=== PATIENT | male | born 1980 | race Caucasian/White ===

== ENCOUNTER 2016-08-31 20:55 | Emergency (ER) | payer OTHER ==
[2016-08-31] MEDS ORDERED: ASPIRIN 81 MG CHEW TABLET As Ordered ONE (21:43)
[2016-08-31] MEDS ORDERED: MORPHINE 2 MG/ML 1ML SYRINGE As Ordered ONE (21:44)
[2016-08-31] MEDS ORDERED: ALPRAZolam 0.25 MG TAB As Ordered ONE (22:09)
[2016-08-31 22:18] LABS: BASO % 0.6 % (0.0-1.0); EOS # 0.1 K/mm3 (0.0-0.50); EOS % 1.7 % (0.0-3.0); LARGE UNSTAINED CELL # 0.1 K/mm3 (0.0-0.4); LARGE UNSTAINED CELL % 1.6 % (0.0-4.0); LYMPH # 1.5 K/mm3 (1.5-4.5); LYMPH % 23.1 % (24.0-44.0); MEAN CORPUSCULAR HEMOGLOBIN 31.3 pg (27.0-33.0); MEAN CORPUSCULAR VOLUME 89.3 fl (80.0-96.0); MONO # 0.4 K/mm3 (0.0-0.8); MONO % 6.1 % (0.0-5.0); NEUTROPHILS % 66.8 % (36.0-66.0); PLATELET COUNT, AUTOMATED 252 k/mm3 (150-450); RED CELL DISTRIBUTION WIDTH 12.9 % (11.5-14.5)
[2016-08-31 22:35] LABS: ANION GAP 12 MEQ/L (8-16); BLOOD UREA NITROGEN 17 MG/DL (7-18); CALCIUM LEVEL 9.4 MG/DL (8.5-10.1); CARBON DIOXIDE LEVEL 27 MEQ/L (21-32); CHLORIDE LEVEL 103 MEQ/L (98-107); CREATININE FOR GFR 1.14 MG/DL (0.70-1.30); GLOMERULAR FILTRATION RATE > 60.0 (>60); GLUCOSE, FASTING 102 MG/DL (70-105); POTASSIUM SERUM 3.4 MEQ/L (3.5-5.1); SODIUM LEVEL 142 MEQ/L (136-145)
[2016-08-31] MEDS ORDERED: POTASSIUM CHLORIDE 10 MEQ SR TABLET As Ordered ONE (23:16)
--- NOTE | 2016-08-31 23:29 | EDDOCDS ---
Nurse's Notes [facility] Name: Edward Rahman Age: 35 yrs Sex: Male : 1980 Arrival Date: 08/31/2016 Time: 20:55 Bed 6 Private MD: [facility] Diagnosis: Other chest pain;Anxiety disorder, unspecified;Panic disorder [episodic paroxysmal anxiety] without agoraphobia Presentation: 08/31 21:04 Presenting complaint: Patient states: about 20 minutes ago began having left sided nn1 chest pain and left sided neck pain. States pain in left neck is worst at this time, feels like pressure in his neck. Reports chest pain is sharp, states he began having chills when pain began. Adult Sepsis Screening: The patient does not have new or worsening altered mentation. Patient has a respiratory rate of greater than or equal to 22 (1 point). Systolic blood pressure is greater than 100. Patient has a qSOFA score of 1- Negative Sepsis Screen. Suicide/Homicide risk assessment- the patient denies having any suicidal and/or homicidal ideations and does not present with any other emotional, behavioral or mental health complaints. Status: Patient is not a service station attendant or dependent. Transition of care: patient was not received from another setting of care. 21:04 Acuity: SILVIA Level 3 nn1 21:04 Method Of Arrival: Walkin/Carried/Asstd nn1 Triage Assessment: 21:08 General: Appears distressed, Behavior is anxious, crying. Pain: Location: left neck nn1 Pain currently is 5 out of 10 on a pain scale. Quality of pain is described as pressure, stabbing, Pain began 30 min ago. HIV screening NA for this visit Offered previously. The patient is triaged at the bedside. See Assessment in Nurses Notes section of ED record. Neurological: Level of Consciousness is awake, alert, obeys commands, Oriented to person, place, time. Cardiovascular: Chest pain is described as mild, Pain is 4 out of 10 on a pain scale. quality is stabbing, is located in left chest wall episodes are continuous. Respiratory: Onset: The symptoms/episode began/occurred suddenly, Airway is patent Respiratory effort is even, labored, Respiratory pattern is hyperventilation. Derm: Skin is moist. Historical: - Allergies: No known drug Allergies; - Home Meds: 1. none - PMHx: Cancer, Testicular- Left; Panic Attacks; - PSHx: Orchiectomy- Left; - Social history: Smoking status: Patient states former smoker of tobacco. No barriers to communication noted, The patient speaks fluent Slovak, Speaks appropriately for age. - Family history: Father has/had diabetes mellitus. - : The pt / caregiver states he / she is not on anticoagulants. Home medication list is obtained from the patient. - Exposure Risk Screening:: None identified. Screenin:10 Screening information is obtained from the patient. Fall risk: No risks identified. nn1 Assistance ADL's: requires no assistance with activities of daily living. Abuse/DV Screen: The patient / caregiver reports he/she is: not in a situation that causes fear, pain or injury. Nutritional screening: No deficits noted. Advance Directives: Currently, there is no health care proxy. There is no active DNR order. home support is adequate. Assessment: 22:01 General: Appears distressed, uncomfortable, well nourished, well groomed, Behavior is kas2 anxious, crying. Pain: Location: neck and chest Pain currently is 5 out of 10 on a pain scale. Pain radiates to neck. Neurological: Level of Consciousness is awake, alert, Oriented to person, place, time. Cardiovascular: Capillary refill < 3 seconds Heart tones S1 S2 present Rhythm is sinus rhythm No ectopy. Respiratory: Airway is patent Respiratory effort is even, unlabored, Respiratory pattern is regular, symmetrical, Breath sounds are clear bilaterally. Derm: Skin is intact, Skin is dry, Skin is pink, warm & dry. Skin temperature is warm. 22:17 General: Appears uncomfortable, well nourished, well groomed, Behavior is anxious, mv5 cooperative. Pain: Location: left sternocleidomastoid Pain currently is 3 out of 10 on a pain scale. Aggravated by Pt reports speaking at normal tone/volume increases discomfort. Cardiovascular: Capillary refill < 3 seconds Heart tones S1 S2 present Rhythm is sinus rhythm. Respiratory: Airway is patent Respiratory effort is even, unlabored, Respiratory pattern is regular, symmetrical, Breath sounds are clear bilaterally. Derm: Skin is dry, Skin is pink, Skin temperature is warm. 23:23 General: Appears in no apparent distress, comfortable, Behavior is cooperative, mv5 pleasant. Pain: Denies pain. Neurological: Level of Consciousness is awake, alert, Oriented to person, place, time. Cardiovascular: Rhythm is sinus rhythm No ectopy. Respiratory: Airway is patent Respiratory effort is even, unlabored, Respiratory pattern is regular, symmetrical. Derm: Skin is pink, warm & dry. Vital Signs: 20:58 BP 156 / 86; Pulse 116; Resp 20 S; Temp 98.2(O); Pulse Ox 100% on R/A; Weight 106.59 kg gr2 (R); Height 5 ft. 10 in. (177.80 cm) (R); Pain 5/10; 21:56 BP 139 / 76 (auto/); mv5 21:56 Pulse 82 MON; Pulse Ox 98% ; mv5 22:09 BP 133 / 73 (auto/); mv5 22:09 Pulse 86 MON; Pulse Ox 96% ; mv5 22:24 BP 128 / 76 (auto/); mv5 22:24 Pulse 80 MON; Pulse Ox 95% ; mv5 22:39 BP 138 / 79 (auto/); mv5 22:39 Pulse 82 MON; Pulse Ox 97% ; mv5 22:54 BP 130 / 75 (auto/); mv5 22:54 Pulse 82 MON; Pulse Ox 96% ; mv5 23:09 BP 133 / 75 (auto/); mv5 23:09 Pulse 86 MON; Pulse Ox 96% ; mv5 23:15 BP 134 / 76; Pulse 88; Resp 18; Temp 97.6(O); Pulse Ox 95% on R/A; Pain 3/10; yolette 20:58 Body Mass Index 33.72 (106.59 kg, 177.80 cm) gr2 Vitals: 20:58 Log In Time: August 31, 2016 at 20:58. RN notified that patient meets Red Flag gr2 criteria. ED Course: 20:57 Patient visited by Yung Cunha. gr2 20:57 [facility] is Private Physician. gr2 20:57 Patient moved to Waiting gr2 21:02 Patient moved to PD dsf 21:05 Triage Initiated nn1 21:17 Clarita Watkins,RN is Primary Nurse. ajs 21:17 Patient moved to 6 ajs 21:18 Patient visited by Rachael Jama. ajs 21:18 EKG done. (by ED staff). Reviewed by Guillermo Woody MD. ajs 21:39 Chana Badillo FNP is PHCP. le 21:54 Patient visited by Chana Badillo FNP. le 21:54 Patient visited by Chana Badillo FNP. le 22:00 Inserted saline lock: 20 gauge in left antecubital area and blood collected. The kas2 patient tolerated the procedure well. No procedures done that require assistance. 22:01 Basic Metabolic Profile Sent. [facility] 22:01 CBC with Diff Sent. kas2 22:01 Cardiac Injury Profile Sent. [facility] 22:01 D-Dimer Quant Sent. [facility] 22:01 Troponin Sent. kas2 22:04 Patient visited by Yulissa Estevez RN. [facility] 22:17 Patient visited by Clarita Watkins,DAVON. mv5 22:24 The patient / caregiver is instructed regarding the plan of care and ED course. mv5 22:24 Discontinued intact, bleeding controlled, pressure dressing applied, No mv5 redness/swelling at site. 22:35 Patient visited by Clarita Watkins,DAVON. mv5 23:12 [facility] is Referral Physician. le 23:15 Patient visited by Iram Manuel PCA. yolette 23:23 Patient visited by Clarita Watkins,DAVON. mv5 Administered Medications: 22:00 Drug: Aspirin 324 mg [aspirin 81 mg chewable tablet (4 tabs)] Route: PO; [facility] 22:00 Drug: morphine 2 mg [morphine 2 mg/mL intravenous cartridge (1 mL)] Route: IVP; Site: [facility] left antecubital; 22:11 Drug: ALPRAZolam 0.5 mg [alprazolam 0.25 mg tablet (2 tabs)] Route: PO; [facility] 22:57 Follow up: Response: No Adverse Reaction mv5 23:26 Drug: Potassium Chloride 40 mEq [potassium chloride ER 10 mEq tablet,extended release mv5 (4 tabs)] Route: PO; 23:27 Follow up: Response: No Adverse Reaction mv5 Order Results: Lab Order: Basic Metabolic Profile; SPEC'M 08/31/16 21:51 Test: GLUCOSE, FASTING; Value: 102; Range: 70-105; Units: MG/DL; Status: F Test: BLOOD UREA NITROGEN; Value: 17; Range: 7-18; Units: MG/DL; Status: F Test: CREATININE FOR GFR; Value: 1.14; Range: 0.70-1.30; Units: MG/DL; Status: F Test: GLOMERULAR FILTRATION RATE; Value: > 60.0; Range: >60; Status: F Test: SODIUM LEVEL; Value: 142; Range: 136-145; Units: MEQ/L; Status: F Test: POTASSIUM SERUM; Value: 3.4; Range: 3.5-5.1; Abnormal: Below low normal; Units: MEQ/L; Status: F Test: CHLORIDE LEVEL; Value: 103; Range: 98-107; Units: MEQ/L; Status: F Test: CARBON DIOXIDE LEVEL; Value: 27; Range: 21-32; Units: MEQ/L; Status: F Test: ANION GAP; Value: 12; Range: 8-16; Units: MEQ/L; Status: F Test: CALCIUM LEVEL; Value: 9.4; Range: 8.5-10.1; Units: MG/DL; Status: F Test Note: ; Units are mL/min/1.73 m2 Chronic Kidney Disease Staging per NKF: Stage I & II GFR >=60 Normal to Mildly Decreased Stage III GFR 30-59 Moderately Decreased Stage IV GFR 15-29 Severely Decreased Stage V GFR <15 Very Little GFR Left ESRD GFR <15 on EXERCISER Lab Order: CBC with Diff; SPEC'M 08/31/16 21:51 Test: WHITE BLOOD COUNT; Value: 6.0; Range: 4.0-10.0; Units: K/mm3; Status: F Test: RED BLOOD COUNT; Value: 4.50; Range: 4.30-6.10; Units: M/mm3; Status: F Test: HEMOGLOBIN; Value: 14.1; Range: 14.0-18.0; Units: g/dl; Status: F Test: HEMATOCRIT; Value: 40.2; Range: 42.0-52.0; Abnormal: Below low normal; Units: %; Status: F Test: MEAN CORPUSCULAR VOLUME; Value: 89.3; Range: 80.0-96.0; Units: fl; Status: F Test: MEAN CORPUSCULAR HEMOGLOBIN; Value: 31.3; Range: 27.0-33.0; Units: pg; Status: F Test: MEAN CORPUSCULAR HGB CONC; Value: 35.0; Range: 32.0-36.5; Units: g/dl; Status: F Test: RED CELL DISTRIBUTION WIDTH; Value: 12.9; Range: 11.5-14.5; Units: %; Status: F Test: PLATELET COUNT, AUTOMATED; Value: 252; Range: 150-450; Units: k/mm3; Status: F Test: NEUTROPHILS %; Value: 66.8; Range: 36.0-66.0; Abnormal: Above high normal; Units: %; Status: F Test: LYMPH %; Value: 23.1; Range: 24.0-44.0; Abnormal: Below low normal; Units: %; Status: F Test: MONO %; Value: 6.1; Range: 0.0-5.0; Abnormal: Above high normal; Units: %; Status: F Test: EOS %; Value: 1.7; Range: 0.0-3.0; Units: %; Status: F Test: BASO %; Value: 0.6; Range: 0.0-1.0; Units: %; Status: F Test: LARGE UNSTAINED CELL %; Value: 1.6; Range: 0.0-4.0; Units: %; Status: F Test: NEUTROPHILS #; Value: 4.0; Range: 1.8-7.7; Units: K/mm3; Status: F Test: LYMPH #; Value: 1.5; Range: 1.5-4.5; Units: K/mm3; Status: F Test: MONO #; Value: 0.4; Range: 0.0-0.8; Units: K/mm3; Status: F Test: EOS #; Value: 0.1; Range: 0.0-0.50; Units: K/mm3; Status: F Test: BASO #; Value: 0.0; Range: 0.0-0.2; Units: K/mm3; Status: F Test: LARGE UNSTAINED CELL #; Value: 0.1; Range: 0.0-0.4; Units: K/mm3; Status: F Lab Order: Cardiac Injury Profile; SPEC'M 08/31/16 21:51 Test: CPK CREATINE PHOSPHOKINASE; Value: 105; Range: 39-308; Units: U/L; Status: F Test: CK-MB VALUE MASS; Value: 1.0; Range: 0.0-3.6; Units: NG/ML; Status: F Test: MB/CK RELATIVE INDEX; Value: 0.95; Range: < OR =4; Status: F Test Note: ; DIAGNOSIS CRITERIA MMB ng/ml Relative Index (RI) NON-AMI < or = 5 N/A SYED ZONE > 5 < or = 4 AMI > 5 > 4 Lab Order: D-Dimer Quant; SPEC'M 08/31/16 21:51 Test: D-DIMER QUANT; Value: 380.3; Range: <500; Units: ng/ml; Status: F Lab Order: Troponin; SPEC'M 08/31/16 21:51 Test: TROPONIN I; Value: < 0.02; Range: < 0.10; Units: NG/ML; Status: F Test Note: ; Troponin I Reference Interval for Enabled Employment LOCI: 99th Percentile= 0.00-0.045 ng/ml Risk Stratification: <= 0.10 ng/ml Decreased Risk for Adverse Clinical Events. 0.10-1.50 ng/ml Increased Risk for Adverse Clinical Events. Evaluation of additional criterion and/or repeat testing in 2-6 hours is suggested to rule out myocardial damage. >= 1.50 ng/ml Indicative of Myocardial Injury. Outcome: 22:24 Discharge Assessment: Patient awake, alert and oriented x 3. No cognitive and/or mv5 functional deficits noted. Patient verbalized understanding of disposition instructions. patient administered narcotics - yes. Pt provided with safe discharge. The following High Risk Discharge criteria are identified: None. Condition: stable. Discharge instructions given to patient, family, Demonstrated understanding of Pt was receptive of discharge instructions/ teaching. No special radiology studies were completed. Property sent home with patient. 23:12 Discharge ordered by Provider. le 23:27 Patient left the ED. mv5 Signatures: Chana Badillo, SENIOR SOFTWARE ANALYST SENIOR SOFTWARE ANALYST Iram Arrieta, CARDIOLOGY CLINICAL CONSULTANT Stephanie La RN RN Rachael Townsend Gainslee gr2 Porfirio GainesRN RN nn1 Yulissa Estevez RN RN [facility] Vannedery,Clarita,RN RN mv5 MTDD
--- NOTE | 2016-08-31 23:29 | EDDOCDS ---
Physician Documentation [facility] Name: Edward Rahman Age: 35 yrs Sex: Male : 1980 Arrival Date: 08/31/2016 Time: 20:55 Bed 6 Private MD: [facility] - [facility] Disposition: 08/31 23:15 Critical Care: Critical care not applicable. le Disposition: 08/31/16 23:12 Discharged to Home/Self Care. Impression: Other chest pain, Anxiety disorder, unspecified, Panic disorder [episodic paroxysmal anxiety] without agoraphobia. - Condition is Stable. - Discharge Instructions: Panic Attacks, Nonspecific Chest Pain, Generalized Anxiety Disorder. - Prescriptions for Hydroxyzine HCl 50 mg Oral Tablet - take 1 tablet by ORAL route every 8 hours As needed; 20 tablet. - Medication Reconciliation, Local Pharmacy Hours form. - Follow up: [facility] - [facility]; When: Call to arrange an appointment; Reason: Recheck today's complaints, Continuance of care. - Problem is an acute exacerbation. - Symptoms have improved. - Notes: Keep hydrated Rest Return to the ED for any further concerns Historical: - Allergies: No known drug Allergies; - Home Meds: 1. none - PMHx: Cancer, Testicular- Left; Panic Attacks; - PSHx: Orchiectomy- Left; - Social history: Smoking status: Patient states former smoker of tobacco. No barriers to communication noted, The patient speaks fluent Chinese, Speaks appropriately for age. - Family history: Father has/had diabetes mellitus. - : The pt / caregiver states he / she is not on anticoagulants. Home medication list is obtained from the patient. - Exposure Risk Screening:: None identified. Vital Signs: 20:58 BP 156 / 86; Pulse 116; Resp 20 S; Temp 98.2(O); Pulse Ox 100% on R/A; Weight 106.59 kg gr2 / 234.99 lbs (R); Height 5 ft. 10 in. (177.80 cm) (R); Pain 5/10; 21:56 BP 139 / 76 (auto/); mv5 21:56 Pulse 82 MON; Pulse Ox 98% ; mv5 22:09 BP 133 / 73 (auto/); mv5 22:09 Pulse 86 MON; Pulse Ox 96% ; mv5 22:24 BP 128 / 76 (auto/); mv5 22:24 Pulse 80 MON; Pulse Ox 95% ; mv5 22:39 BP 138 / 79 (auto/); mv5 22:39 Pulse 82 MON; Pulse Ox 97% ; mv5 22:54 BP 130 / 75 (auto/); mv5 22:54 Pulse 82 MON; Pulse Ox 96% ; mv5 23:09 BP 133 / 75 (auto/); mv5 23:09 Pulse 86 MON; Pulse Ox 96% ; mv5 23:15 BP 134 / 76; Pulse 88; Resp 18; Temp 97.6(O); Pulse Ox 95% on R/A; Pain 3/10; yolette 20:58 Body Mass Index 33.72 (106.59 kg, 177.80 cm) gr2 MDM: 21:03 ECG WITH READING ER PHYS+CARDIAG ordered. EDMS 21:03 ECG WITH READING ER PHYS+CARDIAG ordered. EDMS 21:39 Aspirin Chewable Tablet 324 mg PO once ordered. le 21:40 morphine 2 mg IVP once ordered. le 21:40 Brick Off Bearer/Pulse Ox/q 30 min VS ordered. le 21:40 IV Saline Lock ordered. le 21:40 Rhythm Strip to chart ordered. le 21:40 Undress patient appropriately for examination ordered. le 21:40 Basic Metabolic Profile Ordered. EDMS 21:40 CBC with Diff Ordered. EDMS 21:40 Cardiac Injury Profile Ordered. EDMS 21:40 D-Dimer Quant Ordered. EDMS 21:40 Troponin Ordered. EDMS 21:42 Chest, 2 View (pa\E\lat) Ordered. EDMS 21:51 ALPRAZolam Tablet 0.5 mg PO once ordered. le 22:27 CBC with Diff Reviewed. le 22:27 D-Dimer Quant Reviewed. le 23:01 Basic Metabolic Profile Reviewed. le 23:01 Cardiac Injury Profile Reviewed. le 23:01 Troponin Reviewed. le 23:02 Potassium Chloride Extended Release Tablet 40 mEq PO once ordered. le 23:19 Financial registration complete. pm4 Administered Medications: 22:00 Drug: Aspirin 324 mg [aspirin 81 mg chewable tablet (4 tabs)] Route: PO; kas2 22:00 Drug: morphine 2 mg [morphine 2 mg/mL intravenous cartridge (1 mL)] Route: IVP; Site: [facility] left antecubital; 22:11 Drug: ALPRAZolam 0.5 mg [alprazolam 0.25 mg tablet (2 tabs)] Route: PO; kas2 22:57 Follow up: Response: No Adverse Reaction mv5 23:26 Drug: Potassium Chloride 40 mEq [potassium chloride ER 10 mEq tablet,extended release mv5 (4 tabs)] Route: PO; 23:27 Follow up: Response: No Adverse Reaction mv5 Signatures: Dispatcher [employer] EDChana Boggs, WRONG ADDRESS CLERK WRONG ADDRESS CLERK Porfirio Salgado RN RN nn1 Rishi Garcia, Reg Reg pm4 Clarita Watkins RN RN mv5 Yulissa Estevez RN kas2 MTDD
--- NOTE | 2016-09-01 02:31 | REP ---
Clinical: Acute chest pain . Comparison: 01/29/2009 . Technique: PA and lateral. Findings: The mediastinum and cardiac silhouette are normal. The lung chandler are clear and without acute consolidation, effusion, or pneumothorax. The skeletal structures are intact and normal. Impression: 1. No acute cardiopulmonary process. Signed by Georges Miranda MD 09/01/2016 02:23 A
--- NOTE | 2016-09-01 21:49 | ECGEPIP ---
Stationary ECG Study [facility] - ED Test Date: 2016-08-31 Pat Name: RADHA JIMENEZ Department: Room: - Gender: M Triage Clinician: asl : 1980 Requested By: CUONG KAY Order Number: [id number] Reading MD: Susie Hayes Measurements Intervals [place] Rate: 103 P: 62 SD: 154 QRS: 78 QRSD: 82 T: 56 QT: 324 QTc: 426 Interpretive Statements SINUS TACHYCARDIA ABNORMAL RHYTHM ECG NO PRIOR FOR COMPARISON Electronically Signed On 09-01-2016 21:48:53 EST by Susie Hayes
--- NOTE | 2016-09-03 00:28 | EDDOCDS ---
Physician Documentation [facility] Name: Edward Rahman Age: 35 yrs Sex: Male : 1980 Arrival Date: 08/31/2016 Time: 20:55 Bed 6 Private MD: [facility] Disposition: 08/31 23:15 Critical Care: Critical care not applicable. le Disposition: 08/31/16 23:12 Discharged to Home/Self Care. Impression: Other chest pain, Anxiety disorder, unspecified, Panic disorder [episodic paroxysmal anxiety] without agoraphobia. - Condition is Stable. - Discharge Instructions: Panic Attacks, Nonspecific Chest Pain, Generalized Anxiety Disorder. - Prescriptions for Hydroxyzine HCl 50 mg Oral Tablet - take 1 tablet by ORAL route every 8 hours As needed; 20 tablet. - Medication Reconciliation, Local Pharmacy Hours form. - Follow up: [facility]; When: Call to arrange an appointment; Reason: Recheck today's complaints, Continuance of care. - Problem is an acute exacerbation. - Symptoms have improved. - Notes: Keep hydrated Rest Return to the ED for any further concerns Historical: - Allergies: No known drug Allergies; - Home Meds: 1. none - PMHx: Cancer, Testicular- Left; Panic Attacks; - PSHx: Orchiectomy- Left; - Social history: Smoking status: Patient states former smoker of tobacco. No barriers to communication noted, The patient speaks fluent Bulgarian, Speaks appropriately for age. - Family history: Father has/had diabetes mellitus. - : The pt / caregiver states he / she is not on anticoagulants. Home medication list is obtained from the patient. - Exposure Risk Screening:: None identified. Vital Signs: 20:58 BP 156 / 86; Pulse 116; Resp 20 S; Temp 98.2(O); Pulse Ox 100% on R/A; Weight 106.59 kg gr2 / 234.99 lbs (R); Height 5 ft. 10 in. (177.80 cm) (R); Pain 5/10; 21:56 BP 139 / 76 (auto/); mv5 21:56 Pulse 82 MON; Pulse Ox 98% ; mv5 22:09 BP 133 / 73 (auto/); mv5 22:09 Pulse 86 MON; Pulse Ox 96% ; mv5 22:24 BP 128 / 76 (auto/); mv5 22:24 Pulse 80 MON; Pulse Ox 95% ; mv5 22:39 BP 138 / 79 (auto/); mv5 22:39 Pulse 82 MON; Pulse Ox 97% ; mv5 22:54 BP 130 / 75 (auto/); mv5 22:54 Pulse 82 MON; Pulse Ox 96% ; mv5 23:09 BP 133 / 75 (auto/); mv5 23:09 Pulse 86 MON; Pulse Ox 96% ; mv5 23:15 BP 134 / 76; Pulse 88; Resp 18; Temp 97.6(O); Pulse Ox 95% on R/A; Pain 3/10; yolette 20:58 Body Mass Index 33.72 (106.59 kg, 177.80 cm) gr2 MDM: 21:03 ECG WITH READING ER PHYS+CARDIAG ordered. EDMS 21:03 ECG WITH READING ER PHYS+CARDIAG ordered. EDMS 21:39 Aspirin Chewable Tablet 324 mg PO once ordered. le 21:40 morphine 2 mg IVP once ordered. le 21:40 Scientist Engineer/Pulse Ox/q 30 min VS ordered. le 21:40 IV Saline Lock ordered. le 21:40 Rhythm Strip to chart ordered. le 21:40 Undress patient appropriately for examination ordered. le 21:40 Basic Metabolic Profile Ordered. EDMS 21:40 CBC with Diff Ordered. EDMS 21:40 Cardiac Injury Profile Ordered. EDMS 21:40 D-Dimer Quant Ordered. EDMS 21:40 Troponin Ordered. EDMS 21:42 Chest, 2 View (pa\E\lat) Ordered. EDMS 21:51 ALPRAZolam Tablet 0.5 mg PO once ordered. le 22:27 CBC with Diff Reviewed. le 22:27 D-Dimer Quant Reviewed. le 23:01 Basic Metabolic Profile Reviewed. le 23:01 Cardiac Injury Profile Reviewed. le 23:01 Troponin Reviewed. le 23:02 Potassium Chloride Extended Release Tablet 40 mEq PO once ordered. le 23:19 Financial registration complete. pm4 23:[address] [facility] Payment Agreement was scanned into [employer] and attached to record. pm4 02/08 10:20 T-Sheet-- Draft Copy was scanned into [employer] and attached to record. gb 10:20 ECG/EKG was scanned into [employer] and attached to record. gb 10:20 Trend VS was scanned into [employer] and attached to record. gb Administered Medications: 08/31 22:00 Drug: Aspirin 324 mg [aspirin 81 mg chewable tablet (4 tabs)] Route: PO; [facility] 22:00 Drug: morphine 2 mg [morphine 2 mg/mL intravenous cartridge (1 mL)] Route: IVP; Site: [facility] left antecubital; 22:11 Drug: ALPRAZolam 0.5 mg [alprazolam 0.25 mg tablet (2 tabs)] Route: PO; [facility] 22:57 Follow up: Response: No Adverse Reaction mv5 23:26 Drug: Potassium Chloride 40 mEq [potassium chloride ER 10 mEq tablet,extended release mv5 (4 tabs)] Route: PO; 23:27 Follow up: Response: No Adverse Reaction mv5 Signatures: Dispatcher [employer] EDMS Yas Jaramillo, Reg Reg gb Chana Badillo, DELIVERY TECHNICIAN DELIVERY TECHNICIAN Porfirio Salgado RN RN nn1 Rishi Garcia, Reg Reg pm4 Clarita Watkins RN RN mv5 Yulissa Estevez RN kas2 The chart was reviewed and I authenticate all verbal orders and agree with the evaluation and treatment provided.Attachments: 23:45 [facility], [facility] Payment Agreement pm4 09/01 10:20 T-Sheet-- Draft Copy 10:20 ECG/EKG Chart Complete MTDD
--- NOTE | 2016-09-03 00:28 | EDDOCDS ---
Physician Documentation [facility] Name: Edward Rahman Age: 35 yrs Sex: Male : 1980 Arrival Date: 08/31/2016 Time: 20:55 Bed 6 Private MD: [facility] Disposition: 08/31 23:15 Critical Care: Critical care not applicable. le Disposition: 08/31/16 23:12 Discharged to Home/Self Care. Impression: Other chest pain, Anxiety disorder, unspecified, Panic disorder [episodic paroxysmal anxiety] without agoraphobia. - Condition is Stable. - Discharge Instructions: Panic Attacks, Nonspecific Chest Pain, Generalized Anxiety Disorder. - Prescriptions for Hydroxyzine HCl 50 mg Oral Tablet - take 1 tablet by ORAL route every 8 hours As needed; 20 tablet. - Medication Reconciliation, Local Pharmacy Hours form. - Follow up: [facility]; When: Call to arrange an appointment; Reason: Recheck today's complaints, Continuance of care. - Problem is an acute exacerbation. - Symptoms have improved. - Notes: Keep hydrated Rest Return to the ED for any further concerns Historical: - Allergies: No known drug Allergies; - Home Meds: 1. none - PMHx: Cancer, Testicular- Left; Panic Attacks; - PSHx: Orchiectomy- Left; - Social history: Smoking status: Patient states former smoker of tobacco. No barriers to communication noted, The patient speaks fluent Greenlandic, Speaks appropriately for age. - Family history: Father has/had diabetes mellitus. - : The pt / caregiver states he / she is not on anticoagulants. Home medication list is obtained from the patient. - Exposure Risk Screening:: None identified. Vital Signs: 20:58 BP 156 / 86; Pulse 116; Resp 20 S; Temp 98.2(O); Pulse Ox 100% on R/A; Weight 106.59 kg gr2 / 234.99 lbs (R); Height 5 ft. 10 in. (177.80 cm) (R); Pain 5/10; 21:56 BP 139 / 76 (auto/); mv5 21:56 Pulse 82 MON; Pulse Ox 98% ; mv5 22:09 BP 133 / 73 (auto/); mv5 22:09 Pulse 86 MON; Pulse Ox 96% ; mv5 22:24 BP 128 / 76 (auto/); mv5 22:24 Pulse 80 MON; Pulse Ox 95% ; mv5 22:39 BP 138 / 79 (auto/); mv5 22:39 Pulse 82 MON; Pulse Ox 97% ; mv5 22:54 BP 130 / 75 (auto/); mv5 22:54 Pulse 82 MON; Pulse Ox 96% ; mv5 23:09 BP 133 / 75 (auto/); mv5 23:09 Pulse 86 MON; Pulse Ox 96% ; mv5 23:15 BP 134 / 76; Pulse 88; Resp 18; Temp 97.6(O); Pulse Ox 95% on R/A; Pain 3/10; yolette 20:58 Body Mass Index 33.72 (106.59 kg, 177.80 cm) gr2 MDM: 21:03 ECG WITH READING ER PHYS+CARDIAG ordered. EDMS 21:03 ECG WITH READING ER PHYS+CARDIAG ordered. EDMS 21:39 Aspirin Chewable Tablet 324 mg PO once ordered. le 21:40 morphine 2 mg IVP once ordered. le 21:40 Talent Acquisition Director/Pulse Ox/q 30 min VS ordered. le 21:40 IV Saline Lock ordered. le 21:40 Rhythm Strip to chart ordered. le 21:40 Undress patient appropriately for examination ordered. le 21:40 Basic Metabolic Profile Ordered. EDMS 21:40 CBC with Diff Ordered. EDMS 21:40 Cardiac Injury Profile Ordered. EDMS 21:40 D-Dimer Quant Ordered. EDMS 21:40 Troponin Ordered. EDMS 21:42 Chest, 2 View (pa\E\lat) Ordered. EDMS 21:51 ALPRAZolam Tablet 0.5 mg PO once ordered. le 22:27 CBC with Diff Reviewed. le 22:27 D-Dimer Quant Reviewed. le 23:01 Basic Metabolic Profile Reviewed. le 23:01 Cardiac Injury Profile Reviewed. le 23:01 Troponin Reviewed. le 23:02 Potassium Chloride Extended Release Tablet 40 mEq PO once ordered. le 23:19 Financial registration complete. pm4 23:45 [facility] Payment Agreement was scanned into [employer] and attached to record. pm4 02/08 10:20 T-Sheet-- Draft Copy was scanned into [employer] and attached to record. gb 10:20 ECG/EKG was scanned into [employer] and attached to record. gb 10:20 Trend VS was scanned into [employer] and attached to record. gb Administered Medications: 08/31 22:00 Drug: Aspirin 324 mg [aspirin 81 mg chewable tablet (4 tabs)] Route: PO; [facility] 22:00 Drug: morphine 2 mg [morphine 2 mg/mL intravenous cartridge (1 mL)] Route: IVP; Site: [facility] left antecubital; 22:11 Drug: ALPRAZolam 0.5 mg [alprazolam 0.25 mg tablet (2 tabs)] Route: PO; [facility] 22:57 Follow up: Response: No Adverse Reaction mv5 23:26 Drug: Potassium Chloride 40 mEq [potassium chloride ER 10 mEq tablet,extended release mv5 (4 tabs)] Route: PO; 23:27 Follow up: Response: No Adverse Reaction mv5 Signatures: Dispatcher Med[employer] EDMS Yas Jaramillo, Reg Reg gb Chana Badillo, INTERNET MARKETER INTERNET MARKETER Porfirio Salgado RN RN nn1 Rishi Garcia, Reg Reg pm4 Clarita Watkins RN RN mv5 Yulissa Estevez RN kas2 The chart was reviewed and I authenticate all verbal orders and agree with the evaluation and treatment provided.Attachments: 23:45 [facility] Payment Agreement pm4 09/01 10:20 T-Sheet-- Draft Copy 10:20 ECG/EKG Chart Complete MTDD
--- NOTE | 2016-09-03 00:29 | EDDOCDS ---
Nurse's Notes [facility] Name: Edward Jimenez Age: 35 yrs Sex: Male : 1980 Arrival Date: 08/31/2016 Time: 20:55 Bed 6 Private MD: [facility] Diagnosis: Other chest pain;Anxiety disorder, unspecified;Panic disorder [episodic paroxysmal anxiety] without agoraphobia Presentation: 08/31 21:04 Presenting complaint: Patient states: about 20 minutes ago began having left sided nn1 chest pain and left sided neck pain. States pain in left neck is worst at this time, feels like pressure in his neck. Reports chest pain is sharp, states he began having chills when pain began. Adult Sepsis Screening: The patient does not have new or worsening altered mentation. Patient has a respiratory rate of greater than or equal to 22 (1 point). Systolic blood pressure is greater than 100. Patient has a qSOFA score of 1- Negative Sepsis Screen. Suicide/Homicide risk assessment- the patient denies having any suicidal and/or homicidal ideations and does not present with any other emotional, behavioral or mental health complaints. 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 Transition of care: patient was not received from another setting of care. 21:04 Acuity: SILVIA Level 3 nn1 21:04 Method Of Arrival: Walkin/Carried/Asstd nn1 Triage Assessment: 21:08 General: Appears distressed, Behavior is anxious, crying. Pain: Location: left neck nn1 Pain currently is 5 out of 10 on a pain scale. Quality of pain is described as pressure, stabbing, Pain began 30 min ago. HIV screening NA for this visit Offered previously. The patient is triaged at the bedside. See Assessment in Nurses Notes section of ED record. Neurological: Level of Consciousness is awake, alert, obeys commands, Oriented to person, place, time. Cardiovascular: Chest pain is described as mild, Pain is 4 out of 10 on a pain scale. quality is stabbing, is located in left chest wall episodes are continuous. Respiratory: Onset: The symptoms/episode began/occurred suddenly, Airway is patent Respiratory effort is even, labored, Respiratory pattern is hyperventilation. Derm: Skin is moist. Historical: - Allergies: No known drug Allergies; - Home Meds: 1. none - PMHx: Cancer, Testicular- Left; Panic Attacks; - PSHx: Orchiectomy- Left; - Social history: Smoking status: Patient states former smoker of tobacco. No barriers to communication noted, The patient speaks fluent Mauritian, Speaks appropriately for age. - Family history: Father has/had diabetes mellitus. - : The pt / caregiver states he / she is not on anticoagulants. Home medication list is obtained from the patient. - Exposure Risk Screening:: None identified. Screenin:10 Screening information is obtained from the patient. Fall risk: No risks identified. nn1 Assistance ADL's: requires no assistance with activities of daily living. Abuse/DV Screen: The patient / caregiver reports he/she is: not in a situation that causes fear, pain or injury. Nutritional screening: No deficits noted. Advance Directives: Currently, there is no health care proxy. There is no active DNR order. home support is adequate. Assessment: 22:01 General: Appears distressed, uncomfortable, well nourished, well groomed, Behavior is kas2 anxious, crying. Pain: Location: neck and chest Pain currently is 5 out of 10 on a pain scale. Pain radiates to neck. Neurological: Level of Consciousness is awake, alert, Oriented to person, place, time. Cardiovascular: Capillary refill < 3 seconds Heart tones S1 S2 present Rhythm is sinus rhythm No ectopy. Respiratory: Airway is patent Respiratory effort is even, unlabored, Respiratory pattern is regular, symmetrical, Breath sounds are clear bilaterally. Derm: Skin is intact, Skin is dry, Skin is pink, warm & dry. Skin temperature is warm. 22:17 General: Appears uncomfortable, well nourished, well groomed, Behavior is anxious, mv5 cooperative. Pain: Location: left sternocleidomastoid Pain currently is 3 out of 10 on a pain scale. Aggravated by Pt reports speaking at normal tone/volume increases discomfort. Cardiovascular: Capillary refill < 3 seconds Heart tones S1 S2 present Rhythm is sinus rhythm. Respiratory: Airway is patent Respiratory effort is even, unlabored, Respiratory pattern is regular, symmetrical, Breath sounds are clear bilaterally. Derm: Skin is dry, Skin is pink, Skin temperature is warm. 23:23 General: Appears in no apparent distress, comfortable, Behavior is cooperative, mv5 pleasant. Pain: Denies pain. Neurological: Level of Consciousness is awake, alert, Oriented to person, place, time. Cardiovascular: Rhythm is sinus rhythm No ectopy. Respiratory: Airway is patent Respiratory effort is even, unlabored, Respiratory pattern is regular, symmetrical. Derm: Skin is pink, warm & dry. Vital Signs: 20:58 BP 156 / 86; Pulse 116; Resp 20 S; Temp 98.2(O); Pulse Ox 100% on R/A; Weight 106.59 kg gr2 (R); Height 5 ft. 10 in. (177.80 cm) (R); Pain 5/10; 21:56 BP 139 / 76 (auto/); mv5 21:56 Pulse 82 MON; Pulse Ox 98% ; mv5 22:09 BP 133 / 73 (auto/); mv5 22:09 Pulse 86 MON; Pulse Ox 96% ; mv5 22:24 BP 128 / 76 (auto/); mv5 22:24 Pulse 80 MON; Pulse Ox 95% ; mv5 22:39 BP 138 / 79 (auto/); mv5 22:39 Pulse 82 MON; Pulse Ox 97% ; mv5 22:54 BP 130 / 75 (auto/); mv5 22:54 Pulse 82 MON; Pulse Ox 96% ; mv5 23:09 BP 133 / 75 (auto/); mv5 23:09 Pulse 86 MON; Pulse Ox 96% ; mv5 23:15 BP 134 / 76; Pulse 88; Resp 18; Temp 97.6(O); Pulse Ox 95% on R/A; Pain 3/10; yolette 20:58 Body Mass Index 33.72 (106.59 kg, 177.80 cm) gr2 Vitals: 20:58 Log In Time: August 31, 2016 at 20:58. RN notified that patient meets Red Flag gr2 criteria. ED Course: 20:57 Patient visited by Yung Cunha. gr2 20:57 [facility] is Private Physician. gr2 20:57 Patient moved to Waiting gr2 21:02 Patient moved to PD dsf 21:05 Triage Initiated nn1 21:17 Clarita Watkins,RN is Primary Nurse. ajs 21:17 Patient moved to 6 ajs 21:18 Patient visited by Rachael Jama. ajs 21:18 EKG done. (by ED staff). Reviewed by Guillermo Woody MD. ajs 21:39 Chana Badillo FNP is [facility]. le 21:54 Patient visited by Chana Badillo FNP. le 21:54 Patient visited by Chana Badillo FNP. le 22:00 Inserted saline lock: 20 gauge in left antecubital area and blood collected. The kas2 patient tolerated the procedure well. No procedures done that require assistance. 22:01 Basic Metabolic Profile Sent. kas2 22:01 CBC with Diff Sent. kas2 22:01 Cardiac Injury Profile Sent. kas2 22:01 D-Dimer Quant Sent. kas2 22:01 Troponin Sent. kas2 22:04 Patient visited by Yulissa Estevez RN. kas2 22:17 Patient visited by Clarita Watkins,DAVON. mv5 22:24 The patient / caregiver is instructed regarding the plan of care and ED course. mv5 22:24 Discontinued intact, bleeding controlled, pressure dressing applied, No mv5 redness/swelling at site. 22:35 Patient visited by Clarita Watkins,DAVON. mv5 23:12 [facility] is Referral Physician. le 23:15 Patient visited by Iram Manuel PCA. yolette 23:23 Patient visited by Clarita Watkins,DAVON. mv5 23:45 [facility] Payment Agreement was scanned into [employer] and attached to record. pm4 02/08 02:39 Chest, 2 View (pa\E\lat) Returned. EDMS 10:20 T-Sheet-- Draft Copy was scanned into [employer] and attached to record. gb 10:20 ECG/EKG was scanned into [employer] and attached to record. gb 10:20 Trend VS was scanned into [employer] and attached to record. gb 22:11 EKG-ADULT Returned. EDMS Administered Medications: 08/31 22:00 Drug: Aspirin 324 mg [aspirin 81 mg chewable tablet (4 tabs)] Route: PO; kas2 22:00 Drug: morphine 2 mg [morphine 2 mg/mL intravenous cartridge (1 mL)] Route: IVP; Site: [facility] left antecubital; 22:11 Drug: ALPRAZolam 0.5 mg [alprazolam 0.25 mg tablet (2 tabs)] Route: PO; kas2 22:57 Follow up: Response: No Adverse Reaction mv5 23:26 Drug: Potassium Chloride 40 mEq [potassium chloride ER 10 mEq tablet,extended release mv5 (4 tabs)] Route: PO; 23:27 Follow up: Response: No Adverse Reaction mv5 Attachments: 10:20 Trend VS gb Order Results: Lab Order: Basic Metabolic Profile; SPEC'08/31/16 21:51 Test: GLUCOSE, FASTING; Value: 102; Range: 70-105; Units: MG/DL; Status: F Test: BLOOD UREA NITROGEN; Value: 17; Range: 7-18; Units: MG/DL; Status: F Test: CREATININE FOR GFR; Value: 1.14; Range: 0.70-1.30; Units: MG/DL; Status: F Test: GLOMERULAR FILTRATION RATE; Value: > 60.0; Range: >60; Status: F Test: SODIUM LEVEL; Value: 142; Range: 136-145; Units: MEQ/L; Status: F Test: POTASSIUM SERUM; Value: 3.4; Range: 3.5-5.1; Abnormal: Below low normal; Units: MEQ/L; Status: F Test: CHLORIDE LEVEL; Value: 103; Range: 98-107; Units: MEQ/L; Status: F Test: CARBON DIOXIDE LEVEL; Value: 27; Range: 21-32; Units: MEQ/L; Status: F Test: ANION GAP; Value: 12; Range: 8-16; Units: MEQ/L; Status: F Test: CALCIUM LEVEL; Value: 9.4; Range: 8.5-10.1; Units: MG/DL; Status: F Test Note: ; Units are mL/min/1.73 m2 Chronic Kidney Disease Staging per NKF: Stage I & II GFR >=60 Normal to Mildly Decreased Stage III GFR 30-59 Moderately Decreased Stage IV GFR 15-29 Severely Decreased Stage V GFR <15 Very Little GFR Left ESRD GFR <15 on NET TECHNICAL ARCHITECT Lab Order: CBC with Diff; SPEC'08/31/16 21:51 Test: WHITE BLOOD COUNT; Value: 6.0; Range: 4.0-10.0; Units: K/mm3; Status: F Test: RED BLOOD COUNT; Value: 4.50; Range: 4.30-6.10; Units: M/mm3; Status: F Test: HEMOGLOBIN; Value: 14.1; Range: 14.0-18.0; Units: g/dl; Status: F Test: HEMATOCRIT; Value: 40.2; Range: 42.0-52.0; Abnormal: Below low normal; Units: %; Status: F Test: MEAN CORPUSCULAR VOLUME; Value: 89.3; Range: 80.0-96.0; Units: fl; Status: F Test: MEAN CORPUSCULAR HEMOGLOBIN; Value: 31.3; Range: 27.0-33.0; Units: pg; Status: F Test: MEAN CORPUSCULAR HGB CONC; Value: 35.0; Range: 32.0-36.5; Units: g/dl; Status: F Test: RED CELL DISTRIBUTION WIDTH; Value: 12.9; Range: 11.5-14.5; Units: %; Status: F Test: PLATELET COUNT, AUTOMATED; Value: 252; Range: 150-450; Units: k/mm3; Status: F Test: NEUTROPHILS %; Value: 66.8; Range: 36.0-66.0; Abnormal: Above high normal; Units: %; Status: F Test: LYMPH %; Value: 23.1; Range: 24.0-44.0; Abnormal: Below low normal; Units: %; Status: F Test: MONO %; Value: 6.1; Range: 0.0-5.0; Abnormal: Above high normal; Units: %; Status: F Test: EOS %; Value: 1.7; Range: 0.0-3.0; Units: %; Status: F Test: BASO %; Value: 0.6; Range: 0.0-1.0; Units: %; Status: F Test: LARGE UNSTAINED CELL %; Value: 1.6; Range: 0.0-4.0; Units: %; Status: F Test: NEUTROPHILS #; Value: 4.0; Range: 1.8-7.7; Units: K/mm3; Status: F Test: LYMPH #; Value: 1.5; Range: 1.5-4.5; Units: K/mm3; Status: F Test: MONO #; Value: 0.4; Range: 0.0-0.8; Units: K/mm3; Status: F Test: EOS #; Value: 0.1; Range: 0.0-0.50; Units: K/mm3; Status: F Test: BASO #; Value: 0.0; Range: 0.0-0.2; Units: K/mm3; Status: F Test: LARGE UNSTAINED CELL #; Value: 0.1; Range: 0.0-0.4; Units: K/mm3; Status: F Lab Order: Cardiac Injury Profile; [facility] 08/31/16 21:51 Test: CPK CREATINE PHOSPHOKINASE; Value: 105; Range: 39-308; Units: U/L; Status: F Test: CK-MB VALUE MASS; Value: 1.0; Range: 0.0-3.6; Units: NG/ML; Status: F Test: MB/CK RELATIVE INDEX; Value: 0.95; Range: < OR =4; Status: F Test Note: ; DIAGNOSIS CRITERIA MMB ng/ml Relative Index (RI) NON-AMI < or = 5 N/A SYED ZONE > 5 < or = 4 AMI > 5 > 4 Lab Order: D-Dimer Quant; [facility] 08/31/16 21:51 Test: D-DIMER QUANT; Value: 380.3; Range: <500; Units: ng/ml; Status: F Lab Order: Troponin; [facility] 08/31/16 21:51 Test: TROPONIN I; Value: < 0.02; Range: < 0.10; Units: NG/ML; Status: F Test Note: ; Troponin I Reference Interval for [place] LOCI: 99th Percentile= 0.00-0.045 ng/ml Risk Stratification: <= 0.10 ng/ml Decreased Risk for Adverse Clinical Events. 0.10-1.50 ng/ml Increased Risk for Adverse Clinical Events. Evaluation of additional criterion and/or repeat testing in 2-6 hours is suggested to rule out myocardial damage. >= 1.50 ng/ml Indicative of Myocardial Injury. Radiology Order: EKG-ADULT Test: EKG-ADULT REASON FOR EXAMINATION: Shortness of Breath; Stationary ECG Study; [facility] - ED; ; Test Date: 2016-08-31; Pat Name: EDWARD JIMENEZ Department:; Room: -; Gender: M Spike Machine Feeder: asl; : 1980 Requested By: CUONG KAY; Order Number: [id number] Reading MD: Susie Hayes; Measurements; Intervals [place]; Rate: 103 P: 62; MS: 154 QRS: 78; QRSD: 82 T: 56; QT: 324; QTc: 426; Interpretive Statements; SINUS TACHYCARDIA; ABNORMAL RHYTHM ECG; NO PRIOR FOR COMPARISON; Electronically Signed On 09-01-2016 21:48:53 EST by Susie Hayes; Radiology Order: Chest, 2 View (pa\E\lat) Test: Chest, 2 View (pa\E\lat) REASON FOR EXAMINATION: Chest Pain; Clinical: Acute chest pain .; ; Comparison: 01/29/2009 .; ; Technique: PA and lateral.; ; Findings:; The mediastinum and cardiac silhouette are normal. The lung chandler are clear and; without acute consolidation, effusion, or pneumothorax. The skeletal structures; are intact and normal.; ; Impression:; 1. No acute cardiopulmonary process.; ; ; Signed by; Georges Miranda MD 09/01/2016 02:23 A; Outcome: 08/31 22:24 Discharge Assessment: Patient awake, alert and oriented x 3. No cognitive and/or mv5 functional deficits noted. Patient verbalized understanding of disposition instructions. patient administered narcotics - yes. Pt provided with safe discharge. The following High Risk Discharge criteria are identified: None. Condition: stable. Discharge instructions given to patient, family, Demonstrated understanding of Pt was receptive of discharge instructions/ teaching. No special radiology studies were completed. Property sent home with patient. 23:12 Discharge ordered by Provider. le 23:27 Patient left the ED. mv5 Signatures: Dispatcher MedHost EDMS Yas Jaramillo, Reg Reg gb Chana Badillo, LOOM INSPECTOR LOOM INSPECTOR Iram Arrieta, DEVOPS ARCHITECT DEVOPS ARCHITECT Stephanie Mart,RN RN Rachael Townsend Gainslee gr2 Porfirio GainesRN RN nn1 Yulissa Estevez,RN RN kas2 Rishi Garcia, Reg Reg pm4 Clarita WatkinsRN RN mv5 Chart Complete MTDD
== END 2016-08-31 23:27 | disposition home or self-care (01) ==
LOC: M ED 20:55
DX: R07.9 Chest pain, unspecified (principal); F41.0 Panic disorder [episodic paroxysmal anxiety]; Z85.47 Personal history of malignant neoplasm of testis; Z87.891 Personal history of nicotine dependence

== ENCOUNTER → 2016-10-18 | Outpatient (CLI) | payer OTHER ==
[2016-10-18 10:05] LABS: ANION GAP 7 MEQ/L (8-16); BLOOD UREA NITROGEN 15 MG/DL (7-18); CALCIUM LEVEL 9.3 MG/DL (8.5-10.1); CARBON DIOXIDE LEVEL 32 MEQ/L (21-32); CHLORIDE LEVEL 101 MEQ/L (98-107); CHOLESTEROL LEVEL 237 MG/DL (<200); CREATININE FOR GFR 0.77 MG/DL (0.70-1.30); GLOMERULAR FILTRATION RATE > 60.0 (>60); GLUCOSE, FASTING 121 MG/DL (70-105); POTASSIUM SERUM 4.3 MEQ/L (3.5-5.1); SODIUM LEVEL 140 MEQ/L (136-145); TRIGLYCERIDES LEVEL 533 MG/DL (<150)
== END ==
LOC: M LAB 08:46
PROVIDERS: ATTEND Nurse Practitioner Family
DX: F41.1 Generalized anxiety disorder (principal)

== ENCOUNTER → 2016-12-09 | Outpatient (REF) | payer OTHER ==
[2016-12-09 14:36] LABS: ANION GAP 6 MEQ/L (8-16); BLOOD UREA NITROGEN 14 MG/DL (7-18); CALCIUM LEVEL 9.1 MG/DL (8.5-10.1); CARBON DIOXIDE LEVEL 34 MEQ/L (21-32); CHLORIDE LEVEL 102 MEQ/L (98-107); CHOLESTEROL LEVEL 229 MG/DL (<200); CREATININE FOR GFR 0.93 MG/DL (0.70-1.30); GLOMERULAR FILTRATION RATE > 60.0 (>60); GLUCOSE, FASTING 109 MG/DL (70-105); SODIUM LEVEL 142 MEQ/L (136-145); TRIGLYCERIDES LEVEL 255 MG/DL (<150)
== END ==
LOC: M LAB REF 13:36
PROVIDERS: ATTEND Nurse Practitioner Family
DX: R73.09 Other abnormal glucose (principal)

== ENCOUNTER → 2017-05-02 | Outpatient (CLI) | payer OTHER ==
[2017-05-02 10:23] LABS: ANION GAP 4 MEQ/L (8-16); BLOOD UREA NITROGEN 16 MG/DL (7-18); CALCIUM LEVEL 8.9 MG/DL (8.5-10.1); CARBON DIOXIDE LEVEL 32 MEQ/L (21-32); CHLORIDE LEVEL 102 MEQ/L (98-107); CHOLESTEROL LEVEL 165 MG/DL (<200); CREATININE FOR GFR 0.83 MG/DL (0.70-1.30); GLOMERULAR FILTRATION RATE > 60.0 (>60); GLUCOSE, FASTING 108 MG/DL (70-105); POTASSIUM SERUM 4.1 MEQ/L (3.5-5.1); SODIUM LEVEL 138 MEQ/L (136-145); TRIGLYCERIDES LEVEL 205 MG/DL (<150)
== END ==
LOC: M LAB 09:15
PROVIDERS: ATTEND Nurse Practitioner Family
DX: E88.81 Metabolic syndrome and other insulin resistance (principal)

== ENCOUNTER → 2017-12-08 | Outpatient (REF) | payer OTHER ==
[2017-12-08 13:01] LABS: CHOLESTEROL LEVEL 172 MG/DL (<200); CHOLESTEROL RISK RATIO 6.142 (<5); HDL CHOLESTEROL 28 MG/DL (>40); LDL CHOLESTEROL 87.2 MG/DL (<100); NON-HDL-C 144 MG/DL; TRIGLYCERIDES LEVEL 284 MG/DL (<150)
== END ==
LOC: M LAB REF 12:05
DX: E78.5 Hyperlipidemia, unspecified (principal)
CPT/HCPCS: 80061

== ENCOUNTER 2018-08-27 19:37 | Emergency (ER) | payer OTHER ==
[~2018-08-27] VITALS: Ht 177.8 cm; Wt 109.1 kg
[2018-08-27 19:37] VITALS: BP 143/86
[2018-08-27] MEDS ORDERED: CLON0.5T8 (19:48)
[2018-08-27] MEDS ORDERED: ACET-683 PO (19:48)
[2018-08-27] MEDS ORDERED: ATOR1TAB21 PO (19:48)
[2018-08-27 20:20] LABS: BASO % 0.2 % (0.0-1.0); EOS # 0.1 10^3/uL (0.0-0.50); EOS % 0.7 % (0.0-3.0); HEMATOCRIT 40.9 % (42.0-52.0); HEMOGLOBIN 13.9 g/dl (13.5-17.5); LYMPH % 6.9 % (24.0-44.0); MEAN CORPUSCULAR HEMOGLOBIN 32.8 pg (27.0-33.0); MEAN CORPUSCULAR VOLUME 96.5 fl (80.0-96.0); MONO # 0.9 10^3/uL (0.0-0.8); MONO % 6.5 % (0.0-5.0); NEUTROPHILS # 12.3 10^3/uL (1.8-7.7); NEUTROPHILS % 85.4 % (36.0-66.0); PLATELET COUNT, AUTOMATED 226 10^3/uL (150-450); RED BLOOD COUNT 4.24 10^6/uL (4.30-6.10); WHITE BLOOD COUNT 14.4 10^3/uL (4.0-10.0)
[2018-08-27] MEDS ORDERED: NS 1,000 ML IV ONE (20:30)
[2018-08-27] MEDS ORDERED: CLINDAMYCIN 900 MG in APPROPRIATE DILUENT 1 EA IV ONE (20:30)
[2018-08-27] MEDS ORDERED: KETOROLAC 30 MG/ML VIAL (J1885) IV ONE (20:30)
[2018-08-27 20:43] LABS: ERYTHROCYTE SEDIMENTATION RATE 34 mm/hr (0-15)
[2018-08-27 20:52] LABS: BLOOD UREA NITROGEN 11 MG/DL (7-18); C REACTIVE PROTEIN QUANTITATIV 8.55 MG/DL (0.00-0.30); CALCIUM LEVEL 8.3 MG/DL (8.5-10.1); CARBON DIOXIDE LEVEL 31 MEQ/L (21-32); CHLORIDE LEVEL 98 MEQ/L (98-107); CREATININE FOR GFR 0.88 MG/DL (0.70-1.30); GLOMERULAR FILTRATION RATE > 60.0 (>60); GLUCOSE, FASTING 101 MG/DL (70-100); POTASSIUM SERUM 4.3 MEQ/L (3.5-5.1); SODIUM LEVEL 136 MEQ/L (136-145)
[2018-08-27] MEDS ORDERED: LIDOCAINE 1% MDV 20ML VIAL SC ONE (22:15)
--- NOTE | 2018-08-27 22:28 | REPVR ---
EXAM: US Pelvis Limited, Male EXAM DATE/TIME: 08/27/2018 10:00 PM CLINICAL HISTORY: 37 years old, male; Pain and signs and symptoms; Mass, lump, or swelling; Lower quadrant, right; Other: RT groin; Additional info: Right groin cellultiis vs abscess TECHNIQUE: Real-time pelvic ultrasound with image documentation. COMPARISON: CT ABD PELVIS W/O FOL BY WIT 01/23/2015 3:52 PM FINDINGS: Soft tissues: There is very severe swelling throughout the right groin consistent with cellulitis and subcutaneous edema and infection. There is a localized collection of fluid which measures only 1 CM by 1.2 CM. This could represent a tiny early abscess. IMPRESSION: 1. There is severe soft tissue swelling right groin consistent with cellulitis and subcutaneous inflammation or infection. 2. 1 CM by 1.2 CM tiny pocket of fluid could be very early abscess. This is at the area of drainage. Electronically signed by: Leonard Ring On 08/27/2018 22:28:34 PM
[2018-08-27] MEDS ORDERED: CLEO300C2 PO (22:51)
[2018-08-27] MEDS ORDERED: IBUP-1022 PO (22:51)
--- NOTE | 2018-08-28 07:24 | ED PDOC ---
Post-Departure Follow-Up niranjan castillo faxed formal report of pelvic us for fu Pushpa Oro MD Aug 28, 2018 07:24
== END 2018-08-27 23:19 | disposition home or self-care (01) ==
LOC: M ED 19:37
DX: L02.214 Cutaneous abscess of groin (principal); L03.115 Cellulitis of right lower limb; Z85.47 Personal history of malignant neoplasm of testis; Z87.891 Personal history of nicotine dependence; Z79.899 Other long term (current) drug therapy
CPT/HCPCS: 10060; 76857; 80048; 83605; 85025; 85652; 86140; 87040; 87070; 87077; 87186; 87205; 96365; 96375; 99282; J1885

== ENCOUNTER 2018-08-29 09:31 | Inpatient (IN) | payer OTHER ==
[~2018-08-29] VITALS: Ht 177.8 cm; Wt 106.8 kg
[~2018-08-29 09:31] MED LIST: ACET-683 PO; ATOR1TAB21 PO; CLEO300C2 PO; CLON0.5T8; IBUP-1022 PO
[2018-08-29] MEDS ORDERED: MORPHINE 4 MG/ML 1ML VIAL/SYRINGE (J2270) IV ONE ×2 (10:15→12:30)
[2018-08-29] MEDS ORDERED: ONDANSETRON 4MG/2ML VIAL (J2405) IV ONE (10:15)
[2018-08-29] MEDS ORDERED: NS 1,000 ML IV ONE (10:15)
[2018-08-29 10:50] LABS: BASO # 0.1 10^3/uL (0.0-0.2); BASO % 0.4 % (0.0-1.0); EOS # 0.2 10^3/uL (0.0-0.50); EOS % 1.4 % (0.0-3.0); HEMATOCRIT 42.2 % (42.0-52.0); HEMOGLOBIN 14.3 g/dl (13.5-17.5); LYMPH # 0.7 10^3/uL (1.5-4.5); LYMPH % 5.1 % (24.0-44.0); MEAN CORPUSCULAR HEMOGLOBIN 32.3 pg (27.0-33.0); MEAN CORPUSCULAR HGB CONC 33.9 g/dl (32.0-36.5); MEAN CORPUSCULAR VOLUME 95.3 fl (80.0-96.0); MONO # 0.8 10^3/uL (0.0-0.8); NEUTROPHILS # 12.2 10^3/uL (1.8-7.7); NEUTROPHILS % 86.6 % (36.0-66.0); PLATELET COUNT, AUTOMATED 237 10^3/uL (150-450); RED BLOOD COUNT 4.43 10^6/uL (4.30-6.10); WHITE BLOOD COUNT 14.1 10^3/uL (4.0-10.0)
[2018-08-29 11:19] LABS: ALBUMIN 3.7 GM/DL (3.2-5.2); ALT/SGPT 34 U/L (12-78); BILIRUBIN,DIRECT 0.3 MG/DL (0.0-0.2); BILIRUBIN,TOTAL 0.9 MG/DL (0.2-1.0); BLOOD UREA NITROGEN 13 MG/DL (7-18); CALCIUM LEVEL 9.2 MG/DL (8.5-10.1); CARBON DIOXIDE LEVEL 28 MEQ/L (21-32); CHLORIDE LEVEL 104 MEQ/L (98-107); CREATININE FOR GFR 0.85 MG/DL (0.70-1.30); GLOMERULAR FILTRATION RATE > 60.0 (>60); GLUCOSE, FASTING 126 MG/DL (70-100); POTASSIUM SERUM 3.7 MEQ/L (3.5-5.1); SODIUM LEVEL 139 MEQ/L (136-145); TOTAL PROTEIN 8.4 GM/DL (6.4-8.2)
[2018-08-29 11:23] LABS: ERYTHROCYTE SEDIMENTATION RATE 69 mm/hr (0-15)
--- NOTE | 2018-08-29 11:35 | REP ---
SOFT-TISSUE ULTRASOUND RIGHT GROIN: HISTORY: Red, swollen area of the right groin. Question abscess. Comparison sonography August 27, 2018 showed a 1.2 cm tiny pocket of fluid which may be early abscess. TODAY'S SONOGRAPHIC FINDINGS: On today's sonography, there has been a slight increase in the size of the irregularly-shaped hypoechoic subcutaneous fluid collection. It currently measures 1.5 x 1.2 x 0.8 cm. There is surrounding edema. IMPRESSION: Slight increase in the size of the small hypoechoic subcutaneous fluid collection, 1.5 x 1.2 x 0.8 cm today. This may be a small abscess. Electronically Signed by Neil Andrews MD 08/29/2018 08:32 P
[2018-08-29] MEDS ORDERED: VANCOMYCIN HCL 1,000 MG, VIAL MATE ADAPTER 1 EACH in D5W 250 ML IV ONE (12:30)
[2018-08-29] MEDS ORDERED: IBUP1TAB6 PO (13:23)
[2018-08-29] MEDS ORDERED: CLEO300C2 PO (13:23)
[2018-08-29] MEDS ORDERED: CLON0.5T8 PO (13:23)
[2018-08-29] MEDS ORDERED: ONDANSETRON 4 MG TAB (S0181) PO PRN (16:30)
[2018-08-29] MEDS ORDERED: BISACODYL 5 MG TAB PO PRN (16:30)
[2018-08-29] MEDS ORDERED: PIPERACILLIN/TAZOBACTAM SOD 3.375 GM in D5W MINI-BAG PLUS 50 ML IV ONE (16:30)
[2018-08-29] MEDS: PERCOCET 5MG/325MG TAB PO PRN ×2 (16:32→20:48)
[2018-08-29] MEDS: NS 1,000 ML IV SCH (16:47)
--- NOTE | 2018-08-29 17:24 | PHACANCOPD ---
PHARMACY VANCOMYCIN DOSING Pt Demographics Demographics Patient Age:37 , Weight:106.820 , Gender: male Adjusted Body Weight Date: 08/29/18, Adjusted Body Weight: [106.82] Kg Events Past 24 Hours Events Past 24 Hours: NO: Dialysis, Diuretic Therapy, Change in CrCl, Fever, Elevation in WBC, Pending Diagnostics, Pending Procedures, Other Vancomycin Vancomycin indication: ABSCESS Vancomycin Target Ranges: 15-20 mcg/ml Vancomycin Load Y/N: No Load Dose Date Time Vancomycin Load Dose: Date: Time: Vancomycin Dose Date: 08/29/18. Current Vancomycin Dose: [1G IV Q8H] Intermittent Dosing?: No Labs Labs Item Value Date Time White Blood Count 14.1 10^3/uL H 08/29/18 1035 Creatinine 0.85 MG/DL 08/29/18 1035 C-Reactive Protein, Quantitative 16.50 MG/DL H 08/29/18 1035 Micro Microbiology 08/29/18 Blood Culture, Received Pending 08/29/18 Blood Culture, Received Pending Creatinine Clearance Date:08/29/18. Creatinine Clearance: [121.7ML/MIN]. Pending Labs VANCOMYCIN TROUGH 08/30/18 @17 Assessment and Plan Maintaining Current Dose?: Yes Reason for dose change: No Dose Change Pharmacist Note Pharmacist Note Date: 08/29/18. Pharmacist note: PT is a 37 year old female being treated for an abscess goal trough 15-20mcg/ml. The patient does not have a history of vancomycin therapy here at [facility] in the past. She received 1g IV in the ER @12:30. To achieve goal vancomycin 1g IV every 8 hours will start at 18:00 08/29/18. A trough is scheduled prior to the 5th dose 08/30/18 @17. We will continue to monitor and adjust the dose as needed. [facility] Aug 29, 2018 17:24
--- NOTE | 2018-08-29 17:27 | PHACANCOPD ---
PHARMACY VANCOMYCIN DOSING Pt Demographics Demographics Patient Age:37 , Weight:106.820 , Gender: male Adjusted Body Weight Date: 08/29/18, Adjusted Body Weight: [106.82] Kg Vancomycin Vancomycin indication: ABSCESS Vancomycin Target Ranges: 15-20 mcg/ml Vancomycin Load Y/N: No Load Dose Date Time Vancomycin Load Dose: Date: Time: Vancomycin Dose Date: 08/29/18. Current Vancomycin Dose: [1G IV Q8H] Intermittent Dosing?: No Labs Micro Microbiology 08/29/18 Blood Culture, Received Pending 08/29/18 Blood Culture, Received Pending Creatinine Clearance Date:08/29/18. Creatinine Clearance: [121.7ML/MIN]. Pending Labs VANCOMYCIN TROUGH 08/30/18 @17 Assessment and Plan Maintaining Current Dose?: Yes Reason for dose change: No Dose Change Pharmacist Note Pharmacist Note Date: 08/29/18. Pharmacist note: PT is a 37 year old male being treated for an abs cess goal trough 15-20mcg/ml. The patient does not have a history of vancomycin therapy here at [facility] in the past. He received 1g IV in the ER @12:30. To achieve goal vancomycin 1g IV every 8 hours will start at 18:00 08/29/18. A trough is scheduled prior to the 5th dose 08/30/18 @17. We will continue to monitor and adjust the dose as needed. amended 08/29/18@17:26 [facility] Aug 29, 2018 17:27
[2018-08-29 18:00] VITALS: BP 138/81
[2018-08-29] MEDS: VANCOMYCIN HCL 1,000 MG, VIAL MATE ADAPTER 1 EACH in D5W 250 ML IV SCH (18:19)
[2018-08-29] MEDS: MORPHINE 4 MG/ML 1ML VIAL/SYRINGE (J2270) IV PRN ×2 (18:20→22:23)
--- NOTE | 2018-08-29 18:43 | HPEPDOC ---
[facility] Medical History & Physical Date of Admission Aug 29, 2018 History and Physical CHIEF COMPLAINT: [RIGHT GROIN ABSCESS ] HISTORY OF PRESENT ILLNESS: This is a 37 yo male with pmhx of left testicular cancer in remission who presented to the ed for right groin worsening cellulitis and possibly abscess. Patient started having erythema and swelling on last and went to the doctor on Tuesday and was started on clindamycin, however since then the area of erythema has grown 2x and now he has a large painful induration draining yellow exudate. He felt feverish yesterday, started having mild back pain today, but denied nausea, vomiting, chest pain sob, headache, stiff neck, lower extremity weakness, urinary retention or diarrhea PAST MEDICAL HISTORY: 1. left testicular cancer PAST SURGICAL HISTORY: removal of left testicle (cancer removal) SOCIAL HISTORY: Tobacco use:[smokes ] ETOH: [n] Illicit drug use: [n] IV drug use: [n] FAMILY HISTORY: denied any family hx ALLERGIES: NDKA REVIEW OF SYSTEMS: All 14 points ROS is negative except what's stated in HPI PHYSICAL EXAMINATION: GEN: No acute distress CVS: Normal S1/s2, no murmurs, rubs or gallops, RESP: Lungs are clear to auscultation bilaterally, no crackles, wheezes or rhonchi Abd: soft, nontender, nondistended, + BS MSK: full ROM, 5/5 strength in all extremities, except for right leg due to pain Integumentary: no rash or bruises , right groin with erythema , warmth and swelling 2x the size of where the initial demarkation was made. induration appreciated with yellow exudate draining Neuro: AOAx3, no focal deficit psych: normal mood, good judgement and cooperative HOME MEDICATIONS: Please see below. LABORATORY DATA: See below. IMAGING: pelvic sono - Slight increase in the size of the small hypoechoic subcutaneous fluid collection, 1.5 x 1.2 x 0.8 cm today. This may be a small abscess. MICROBIOLOGY: Please see below. ASSESSMENT: right groin cellulitis and possibly abscess . PLAN: 1. dc clinda 2. c/w vanc and zosyn 3. f/u wound and bcx 4. surgery contact - will see patient in AM and possibly take to OR for I and D 5. prn pain meds 6/ IVF 7. NPO after midnight 8. monitor lower back pain for any sign of cord compression and re- evaluate 9. Patient is medically optimized for surgery 10. f/u hba1c for possibly DM DVT ppx Full code, from home, no svc Vital Signs Vital Signs Date Time Temp Pulse Resp B/P (MAP) Pulse Ox O2 Delivery O2 Flow Rate FiO2 08/29/18 18:20 19 08/29/18 17:06 99.0 80 115/80 (92) 98 Room Air Laboratory Data Labs 24H Laboratory Tests 2 08/29/18 10:35: Immature Granulocyte % (Auto) 0.5, White Blood Count 14.1H, Red Blood Count 4.43, Hemoglobin 14.3, Hematocrit 42.2, Mean Corpuscular Volume 95.3, Mean Corpuscular Hemoglobin 32.3, Mean Corpuscular Hemoglobin Concent 33.9, Red Cell Distribution Width 13.0, Platelet Count 237, Neutrophils (%) (Auto) 86.6H, Lymphocytes (%) (Auto) 5.1L, Monocytes (%) (Auto) 6.0H, Eosinophils (%) (Auto) 1.4, Basophils (%) (Auto) 0.4, Neutrophils # (Auto) 12.2H, Lymphocytes # (Auto) 0.7L, Monocytes # (Auto) 0.8, Eosinophils # (Auto) 0.2, Basophils # (Auto) 0.1, Nucleated Red Blood Cells % (auto) 0.0, Erythrocyte Sedimentation Rate 69H, Anion Gap 7L, Glomerular Filtration Rate > 60.0, Lactic Acid Level 1.6, Calcium Level 9.2, Aspartate Amino Transf (AST/SGOT) 15, Alanine Aminotransferase (ALT/SGPT) 34, Alkaline Phosphatase 86, Total Bilirubin 0.9, Direct Bilirubin 0.3H, C-Reactive Protein, Quantitative 16.50H, Total Protein 8.4H, Albumin 3.7, Albumin/Globulin Ratio 0.79L CBC/BMP Laboratory Tests 08/29/18 10:35 Red Blood Count 4.43, Mean Corpuscular Volume 95.3, Mean Corpuscular Hemoglobin 32.3, Mean Corpuscular Hemoglobin Concent 33.9, Red Cell Distribution Width 13.0, Neutrophils (%) (Auto) 86.6 H, Lymphocytes (%) (Auto) 5.1 L, Monocytes (%) (Auto) 6.0 H, Eosinophils (%) (Auto) 1.4, Basophils (%) (Auto) 0.4, Neutrophils # (Auto) 12.2 H, Lymphocytes # (Auto) 0.7 L, Monocytes # (Auto) 0.8, Eosinophils # (Auto) 0.2, Basophils # (Auto) 0.1 Microbiology Microbiology 08/29/18 Blood Culture, Received Pending 08/29/18 Blood Culture, Received Pending Home Medications Scheduled Atorvastatin Calcium (Atorvastatin Calcium) 20 Mg Tab, 20 MG PO QPM TAKES AT DINNERTIME, MISSED DOSE, TOOK THIS AM 08/29 Clindamycin Hcl (Cleocin) 300 Mg Cap, 300 MG PO QID STARTED 08/26 FOR 10 DAYS Scheduled PRN Clonazepam (Clonazepam) 0.5 Mg Tab, 0.5 MG PO DAILY PRN for ANXIETY Ibuprofen (Ibuprofen) 600 Mg Tab, 600 MG PO Q6H PRN for PAIN with food Allergies Coded Allergies: No Known Drug Allergy (Verified Allergy, Unknown, 10/25/12) DYLAN HORNE MD Aug 29, 2018 18:43
[2018-08-29] MEDS ORDERED: ISOVUE-370 76% 100ML VIAL (Q9967) As Ordered ONE (19:22)
[2018-08-29 20:00] VITALS: BP 131/74
[2018-08-29] MEDS: SENOKOT S TAB PO SCH (20:47)
[2018-08-29] MEDS: HEPARIN SOD (PORCINE) 5000 UNITS/ML VIAL SC SCH (20:48)
--- NOTE | 2018-08-29 21:06 | REP ---
CT LUMBAR SPINE WITHOUT CONTRAST: HISTORY: Right groin abscess. There is no disc bulge or herniation at the L1-2, L2-3, and L5-S1 levels. There is hypertrophy of the posterior articulating facets at the L5-S1 level. The nerves exit the neural foramina without compression. A diffuse disc bulge is present at the L3-4 level. There is minimal compression of the thecal sac. The L3 nerves exit the neural foramina without compression. A diffuse disc bulge is present at the L4-5 level. There is minimal compression of the thecal sac. The L4 nerves exit the neural foramina without compression. The intervertebral discs and vertebral bodies are normal in height. There is no subluxation. IMPRESSION: Diffuse disc bulges at the L3-4 and L4-5 levels with minimal thecal sac compression. Electronically Signed by Jam Hunt MD 08/30/2018 08:08 A
[2018-08-30] VITALS (8 sets, daily range): BP systolic 130–147; BP diastolic 69–82
[2018-08-30] MEDS ORDERED: NS 1,000 ML IV SCH (00:01)
[2018-08-30] MEDS: VANCOMYCIN HCL 1,000 MG, VIAL MATE ADAPTER 1 EACH in D5W 250 ML IV SCH ×3 (01:14→18:19)
[2018-08-30] MEDS: HEPARIN SOD (PORCINE) 5000 UNITS/ML VIAL SC SCH ×3 (05:03→21:50)
[2018-08-30] MEDS: MORPHINE 4 MG/ML 1ML VIAL/SYRINGE (J2270) IV PRN ×2 (05:03→13:36)
[2018-08-30] MEDS: PERCOCET 5MG/325MG TAB PO PRN ×4 (05:51→17:35)
[2018-08-30 06:55] LABS: BASO % 0.4 % (0.0-1.0); EOS # 0.3 10^3/uL (0.0-0.50); EOS % 2.6 % (0.0-3.0); HEMATOCRIT 34.9 % (42.0-52.0); HEMOGLOBIN 11.9 g/dl (13.5-17.5); LYMPH # 0.9 10^3/uL (1.5-4.5); LYMPH % 9.1 % (24.0-44.0); MEAN CORPUSCULAR HEMOGLOBIN 32.6 pg (27.0-33.0); MEAN CORPUSCULAR HGB CONC 34.1 g/dl (32.0-36.5); MEAN CORPUSCULAR VOLUME 95.6 fl (80.0-96.0); MONO # 0.8 10^3/uL (0.0-0.8); NEUTROPHILS # 7.8 10^3/uL (1.8-7.7); NEUTROPHILS % 79.3 % (36.0-66.0); PLATELET COUNT, AUTOMATED 237 10^3/uL (150-450); RED BLOOD COUNT 3.65 10^6/uL (4.30-6.10); WHITE BLOOD COUNT 9.9 10^3/uL (4.0-10.0)
[2018-08-30 07:11] LABS: HEMOGLOBIN A1c 5.6 %
[2018-08-30 07:23] LABS: BLOOD UREA NITROGEN 9 MG/DL (7-18); CALCIUM LEVEL 8.6 MG/DL (8.5-10.1); CARBON DIOXIDE LEVEL 29 MEQ/L (21-32); CHLORIDE LEVEL 103 MEQ/L (98-107); CREATININE FOR GFR 0.79 MG/DL (0.70-1.30); GLOMERULAR FILTRATION RATE > 60.0 (>60); GLUCOSE, FASTING 115 MG/DL (70-100); MAGNESIUM LEVEL 2.5 MG/DL (1.8-2.4); POTASSIUM SERUM 4.3 MEQ/L (3.5-5.1); SODIUM LEVEL 138 MEQ/L (136-145)
--- NOTE | 2018-08-30 08:57 | ECGEPIP ---
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
[2018-08-30] MEDS: SENOKOT S TAB PO SCH ×2 (10:06→21:50)
[2018-08-30] MEDS: NS 1,000 ML IV SCH ×2 (10:08→18:19)
--- NOTE | 2018-08-30 10:28 | REP ---
CT PELVIS WITH IV CONTRAST: HISTORY: Evaluate abscess. Rule out osteomyelitis or cord compression. Patient reports a history of testicular carcinoma status post left orchiectomy. Comparison CT study is from January 23, 2015. CT CONTRAST DOSE: 100 mL of intravenous Isovue [address] FINDINGS: There is diffuse subcutaneous fat swelling, mild lymphadenopathy, and skin thickening in the right inguinal soft tissues lateral to the right spermatic cord and inguinal canal. No abscess is seen. The largest right inguinal lymph node measures 10 x 20 mm. No vascular abnormality is seen. No soft tissue gas is appreciated. Normal appendix is seen. No intrapelvic abscess is noted. Calcified gallstones are again noted in the gallbladder, which is partially seen at the top of the imaging field of view. IMPRESSION: Cellulitis inflammatory pattern in the right inguinal soft tissues. No abscess seen. Mild reactive lymphadenopathy. Electronically Signed by Neil Andrews MD 08/30/2018 06:50 P
--- NOTE | 2018-08-30 14:23 | IPNPDOC ---
Text Note Date of Service The patient was seen on 08/30/18. NOTE Subjective: Patient is a 37-year-old male with PMHx of Left testicular cancer (s/p surgery) who presented to the ER with complaints of worsening pain, redness and swelling around his right groin. Patient noted that on he had a pimple that he popped around the area. Subsequent on Tuesday, there was worsening redness, warmth and tenderness. He visited the ER on Tuesday was prescribed clindamycin and discharged home. Patient has returned to the ER again on 08/29/2018 because of worsening symptoms. Patient was admitted to hospitalist service for further evaluation and treatment. General surgery was called on consultation for incision and drainage of potential abscess. Patient was seen and examined at the bedside. This morning patient has noted that his pain is doing much better. The redness has subsided and the swelling has improved. He denies chest pain, shortness of breath or palpitations. Denies nausea, vomiting, abdominal pain, constipation, diarrhea or discomfort with urination. Objective: Vitals (See below) General: Lying in bed, no acute distress, comfortable, AAOx3 HEENT: NC, AT CVS: RRR, +S1S2 Lungs: Fair air entry b/l, -w/r/r Abdomen: Soft, ND, NT Extremities: - Edema, - Calf tenderness : Right inguinal redness extending to right thigh and suprapubic region; no scrotal tenderness, erythema, swelling and tenderness appeared to be improving Assessment and plan: Right inguinal erythema, tenderness and swelling - likely 2/2 right-sided cellulitis, possible abscess/phlegmon - Patient noted a recent history of a pimple/boil that he tried to remove on his own - Had worsening of his symptoms had followed up in the ER and received antibiotics; failed to improve while on antibiotics - Physical shows improvement of erythema, warmth and tenderness; has regressed from demarcation lines - s/p Leukocytosis; No lactic acidosis - Wound culture /: Staphylococcus aureus - Blood cultures 08/29: Negative at 24 hours - Will be getting deep culture results in the OR with surgery, doing incision and drainage - Will get MRSA Screen - c/w Zosyn and Vancomycin (Day #2) - Dr. Levin (General surgery) on consultation; appreciate their input; will be going to or later today Questionable back pain? - Patient reports no back pain currently - Strength of bilateral lower extremities is 5 out of 5, no sensory deficits noted - CT Lumbar Spine 08/30: Diffuse disc bulges at the L3-4 and L4-5 levels with minimal thecal sac compression. - c/w Tylenol when necessary Left testicular cancer - s/p Surgery DVT prophylaxis - c/w Heparin VS,Fishbone, I+O VS, Fishbone, I+O Laboratory Tests 08/30/18 06:39 Red Blood Count 3.65 L, Mean Corpuscular Volume 95.6, Mean Corpuscular Hemoglobin 32.6, Mean Corpuscular Hemoglobin Concent 34.1, Red Cell Distribution Width 13.0, Neutrophils (%) (Auto) 79.3 H, Lymphocytes (%) (Auto) 9.1 L, Grady cytes (%) (Auto) 8.0 H, Eosinophils (%) (Auto) 2.6, Basophils (%) (Auto) 0.4, Neutrophils # (Auto) 7.8 H, Lymphocytes # (Auto) 0.9 L, Monocytes # (Auto) 0.8, Eosinophils # (Auto) 0.3, Basophils # (Auto) 0.0, Calcium Level 8.6 Vital Signs Date Time Temp Pulse Resp B/P (MAP) Pulse Ox O2 Delivery O2 Flow Rate FiO2 08/30/18 13:36 18 08/30/18 06:00 97.6 75 133/80 (97) 98 08/29/18 17:06 Room Air I&O- Last 24 Hours up to 6 AM 08/30/18 06:00 Intake Total 2680 ml Output Total 0 ml Balance 2680 ml WILLIAM SKINNER MD Aug 30, 2018 14:23
[2018-08-30] MEDS ORDERED: LIDOCAINE 1% SDV INJ 30 ML VIAL As Ordered ONE (15:02)
[2018-08-30] MEDS ORDERED: LIDOCAINE W/EPINEPHRINE 1% 20ML VIAL As Ordered ONE (15:02)
[2018-08-30] MEDS ORDERED: LIDOCAINE 2% JELLY 30 ML As Ordered ONE (15:17)
[2018-08-30] MEDS ORDERED: dexameTHASONE 4 MG/ML 1ML VIAL (J1100) As Ordered ONE (15:17)
[2018-08-30] MEDS ORDERED: fentaNYL 100 MCG/2 ML INJECTION (J3010) As Ordered ONE (15:17)
[2018-08-30] MEDS ORDERED: ONDANSETRON 4MG/2ML VIAL (J2405) As Ordered ONE (15:17)
[2018-08-30] MEDS ORDERED: LIDOCAINE 2% INJ 100 MG/5 ML SDV (FOR ANES.) As Ordered ONE (15:17)
[2018-08-30] MEDS ORDERED: PROPOFOL 200 MG/20 ML VIAL As Ordered ONE (15:17)
[2018-08-30] MEDS ORDERED: MIDAZOLAM INJ 2 MG/2 ML VIAL (J2250) As Ordered ONE (15:17)
--- NOTE | 2018-08-30 16:16 | IPNPDOC ---
Subjective General Date/Time Seen The patient was seen on 08/30/18 at 16:09. Subject Chief Complaint/History The patient is a 37-year-old male admitted with a reason for visit of Abscess Of Rt Groin. I was asked to see Mr. Rahman for right groin swelling, cellulitis and abscess. Current Medications Current Medications Current Medications Acetaminophen (Tylenol Tab) 650 mg Q4HP PRN PO MILD PAIN OR FEVER; Start 08/29/18 at 16:30 Bisacodyl (Dulcolax Tab) 5 mg DAILYPRN PRN PO CONSTIPATION; Start 08/29/18 at 16:30 Heparin Sodium (Porcine) (Heparin) 5,000 units Q8H SC Last administered on 08/30/18at 13:37; Start 08/29/18 at 22:00 Home Med (Med Rec Complete!) ASDIRECTED XX ; Start 08/29/18 at 13:30; Stop 08/29/18 at 13:30; Status DC Morphine Sulfate (Morphine Sulfate Inj) 2 mg Q2HP PRN IV SEVERE PAIN (PS 8-10) Last administered on 08/30/18at 13:36; Start 08/29/18 at 16:30 Ondansetron HCl (Zofran) 4 mg Q6HP PRN PO NAUSEA OR VOMITING; Start 08/29/18 at 16:30 Oxycodone/ Acetaminophen (Percocet 5mg/ 325mg Tablet) 1 tab Q4HP PRN PO MODERATE PAIN (PS 5-7) Last administered on 08/30/18at 10:08; Start 08/29/18 at 16:30 Senna/Docusate Sodium (Senokot S) 1 tab BID PO Last administered on 08/30/18at 10:06; Start 08/29/18 at 21:00 Sodium Chloride 1,000 ml @ 70 mls/hr [id number] IV Last administered on 08/30/18at 10:08; Start 08/29/18 at 16:20 Sodium Chloride 1,000 ml @ 70 mls/hr [id number] IV ; Start 08/30/18 at 00:01; Stop 08/30/18 at 00:01; Status DC Vancomycin HCl 1000 mg/IV Miscellaneous Supplies 1 each/ Dextrose 270 ml @ 270 mls/hr Q8H IV Last administered on 08/30/18at 10:08; Start 08/29/18 at 18:00 Allergies Coded Allergies: No Known Drug Allergy (Verified Allergy, Unknown, 10/25/12) Objective Physical Examination Examination GENERAL APPEARANCE:[Patient seen, laying in bed, awake, alert, and oriented. Comfortable, in no acute distress]. SKIN: [Warm and moist]. HEENT: [Normocephalic, atraumatic. [place] palpebral conjunctiva, anicteric sclerae. Lips and mucosa appear moist]. NECK: [Supple, no thyromegaly. No obvious jugular venous distention]. LUNGS: [Clear to auscultation bilaterally. No wheezing appreciated]. HEART: [No chest wall abnormalities. Regular rate and rhythm with no murmurs appreciated]. ABDOMEN: There is extensive cellulitis and induration involving the right groin which extends to the left side as well as to the upper thigh. Tender to palpation. Scrotum seems to be spared. EXTREMITIES: [Extremities have no deformities. No edema identified]. Vital Signs Vital Signs Date Time Temp Pulse Resp B/P (MAP) Pulse Ox O2 Delivery O2 Flow Rate FiO2 08/30/18 14:00 97.5 74 19 130/74 (92) 97 08/29/18 17:06 Room Air I&Os I&O- Last 24 Hours up to 6 AM 08/30/18 06:00 Intake Total 2680 ml Output Total 0 ml Balance 2680 ml Laboratory Data Labs 24H Laboratory Tests 2 08/30/18 06:39: Immature Granulocyte % (Auto) 0.6, White Blood Count 9.9, Red Blood Count 3.65L, Hemoglobin 11.9#L, Hematocrit 34.9L, Mean Corpuscular Volume 95.6, Mean Corpuscular Hemoglobin 32.6, Mean Corpuscular Hemoglobin Concent 34.1, Red Cell Distribution Width 13.0, Platelet Count 237, Neutrophils (%) (Auto) 79.3H, Lymphocytes (%) (Auto) 9.1L, Monocytes (%) (Auto) 8.0H, Eosinophils (%) (Auto) 2.6, Basophils (%) (Auto) 0.4, Neutrophils # (Auto) 7.8H, Lymphocytes # (Auto) 0.9L, Monocytes # (Auto) 0.8, Eosinophils # (Auto) 0.3, Basophils # (Auto) 0.0, Nucleated Red Blood Cells % (auto) 0.0, Anion Gap 6L, Glomerular Filtration Rate > 60.0, Estimated Mean Plasma Glucose 114H, Hemoglobin A1c 5.6, Blood Urea N itrogen 9, Creatinine 0.79, Sodium Level 138, Potassium Level 4.3, Chloride Level 103, Carbon Dioxide Level 29, Calcium Level 8.6, Magnesium Level 2.5H, C- Reactive Protein, Quantitative 9.10H CBC/BMP Laboratory Tests 08/30/18 06:39 Red Blood Count 3.65 L, Mean Corpuscular Volume 95.6, Mean Corpuscular Hemoglobin 32.6, Mean Corpuscular Hemoglobin Concent 34.1, Red Cell Distribution Width 13.0, Neutrophils (%) (Auto) 79.3 H, Lymphocytes (%) (Auto) 9.1 L, Monocytes (%) (Auto) 8.0 H, Eosinophils (%) (Auto) 2.6, Basophils (%) (Auto) 0.4, Neutrophils # (Auto) 7.8 H, Lymphocytes # (Auto) 0.9 L, Monocytes # (Auto) 0.8, Eosinophils # (Auto) 0.3, Basophils # (Auto) 0.0, Calcium Level 8.6 Microbiology Microbiology 08/29/18 Blood Culture - Preliminary, Resulted No growth after 24 hours . All specim... 08/29/18 Blood Culture - Preliminary, Resulted No growth after 24 hours . All specim... 08/30/18 MRSA Screen, Received Pending Impression right groin abscess: I will bring the patient to the OR for incision and drainage of his right groin abscess. TAYLOR PEREIRA MD Aug 30, 2018 16:16
[2018-08-30] MEDS ORDERED: PERCOCET 5MG/325MG TAB As Ordered ONE ×2 (17:03→17:25)
[2018-08-30] MEDS ORDERED: KETOROLAC 30 MG/ML VIAL (J1885) IV PRN (17:15)
[2018-08-30] MEDS ORDERED: METOCLOPRAMIDE INJ 10MG/2ML VIAL (J2765) IV PRN (17:15)
[2018-08-30] MEDS ORDERED: fentaNYL 100 MCG/2 ML INJECTION (J3010) IV PRN (17:15)
[2018-08-30] MEDS ORDERED: ONDANSETRON 4MG/2ML VIAL (J2405) IV PRN (17:15)
[2018-08-30] MEDS ORDERED: LR 1,000 ML IV SCH (17:15)
[2018-08-31] MEDS: VANCOMYCIN HCL 1,000 MG, VIAL MATE ADAPTER 1 EACH in D5W 250 ML IV SCH ×3 (02:04→17:35)
[2018-08-31 04:00] VITALS: BP 142/82
[2018-08-31] MEDS: HEPARIN SOD (PORCINE) 5000 UNITS/ML VIAL SC SCH ×3 (05:37→21:46)
[2018-08-31] MEDS: ACETAMINOPHEN TAB 650MG DOSE (2X325MG) PO PRN ×2 (05:39→14:54)
[2018-08-31 06:46] LABS: BASO % 0.1 % (0.0-1.0); HEMATOCRIT 36.1 % (42.0-52.0); HEMOGLOBIN 12.5 g/dl (13.5-17.5); LYMPH # 0.7 10^3/uL (1.5-4.5); LYMPH % 5.6 % (24.0-44.0); MEAN CORPUSCULAR HEMOGLOBIN 32.3 pg (27.0-33.0); MEAN CORPUSCULAR HGB CONC 34.6 g/dl (32.0-36.5); MEAN CORPUSCULAR VOLUME 93.3 fl (80.0-96.0); MONO # 0.5 10^3/uL (0.0-0.8); MONO % 3.9 % (0.0-5.0); NEUTROPHILS # 10.7 10^3/uL (1.8-7.7); NEUTROPHILS % 89.7 % (36.0-66.0); PLATELET COUNT, AUTOMATED 298 10^3/uL (150-450); RED BLOOD COUNT 3.87 10^6/uL (4.30-6.10); WHITE BLOOD COUNT 11.9 10^3/uL (4.0-10.0)
[2018-08-31 07:07] LABS: BLOOD UREA NITROGEN 9 MG/DL (7-18); C REACTIVE PROTEIN QUANTITATIV 5.83 MG/DL (0.00-0.30); CALCIUM LEVEL 8.6 MG/DL (8.5-10.1); CARBON DIOXIDE LEVEL 28 MEQ/L (21-32); CHLORIDE LEVEL 103 MEQ/L (98-107); CREATININE FOR GFR 0.73 MG/DL (0.70-1.30); GLOMERULAR FILTRATION RATE > 60.0 (>60); GLUCOSE, FASTING 116 MG/DL (70-100); MAGNESIUM LEVEL 2.3 MG/DL (1.8-2.4); POTASSIUM SERUM 3.9 MEQ/L (3.5-5.1); SODIUM LEVEL 138 MEQ/L (136-145)
[2018-08-31] MEDS ORDERED: INFLUENZA QUADRIVALENT PF VACCINE 0.5ML SYRINGE (90686) IM ONE (09:00)
[2018-08-31 10:00] VITALS: BP 143/73
[2018-08-31] MEDS: SENOKOT S TAB PO SCH ×2 (10:11→21:46)
[2018-08-31] MEDS: PERCOCET 5MG/325MG TAB PO PRN (10:20)
--- NOTE | 2018-08-31 11:05 | ROOPDOC ---
[facility] Report Of Operation Report of Operation DATE OF PROCEDURE: 08/30/18 PREPROCEDURE DIAGNOSES: Right groin abscess POSTPROCEDURE DIAGNOSES: Right groin abscess. PROCEDURE: Incision and drainage of right groin abscess. SURGEON: Cody Pereira MD [employer]: Glenna Ramirez DO (PGY1) ANESTHESIA: Gen. anesthesia via LMA. ESTIMATED BLOOD LOSS: Approximately 10 mL. COMPLICATIONS: None. REMARKS: Relatively healthy 37-year-old male with about a 5 day history of swelling, redness and induration over his right groin area and most likely undrained collection or abscess subcutaneously. He has been admitted in the hospital and started on vancomycin. He is brought to the OR for incision and drainage of the abscess.. DESCRIPTION OF PROCEDURE: Patient was brought to the operating room. He is on regular doses of vancomycin for his right groin cellulitis. He is laid supine on the procedure table. General anesthesia induced using laryngeal mask airway. SCD boots placed on his lower extremities for DVT prophylaxis. His right groin and lower abdomen and upper thigh was then prepped and draped in usual sterile fashion. We paused for a surgical timeout using both pre-incision safety checklist to verify correct patient, procedure site and additional clinical information prior to beginning the procedure. On examination there is a wide area of induration involving the right groin on top of the inguinal canal above the groin crease with skin cellulitis extending to the other side and also on the upper thigh but seems to be receding from the IV antibiotics. He is a small pinprick opening on the lateral portion of his groin where it is draining a small amount of purulent material. The indurated area roughly measures about 6 x 3 cm. The inflamed area of the groin was widely infiltrated with local anesthesia using 1% lidocaine with epinephrine. An incision on top of the most indurated portion of the groin extending about 4 cm was then created parallel to the groin crease and this was deepened through the thickened and inflamed subcutaneous tissue and we entered the abscess cavity with drainage of thick whitish purulent material. Using both hemostats and finger dissection I palpated for any loculated collections. The previous draining area in the skin laterally was connected with the abscess cavity is a counterincision. I then examined the abscess cavity and subcutaneous area. This is mostly inflamed, indurated adipose tissue without any signs of necrotic material. This was irrigated with saline a nd temporarily packed with laparotomy pads. Once at the quit hemostasis was achieved, I left a 2 inch iodoform cause as packing and bulky gauze dressing stent placed. Patient was then promptly awakened, extubated and brought to recovery room stable. CODY PEREIRA MD Aug 31, 2018 11:05
--- NOTE | 2018-08-31 11:07 | IPNPDOC ---
Text Note Date of Service The patient was seen on 08/31/18. NOTE Patient was seen in rounds. He feels comfortable. He only took 1 dose of Tylenol for pain control last night. He has been afebrile. His right groin area was examined. Dressings appear mostly intact with slight staining of the cotton gauze. Most of the erythema on the upper thigh and opposite groin seems to have receded. Impression: Right groin abscess status post incision and drainage Plans: I will see him back tomorrow and take down the dressing and evaluate the wound to suggest further wound care later as an outpatient. Antibiotics per primary team. Cultures were sent in the OR. VS,Fishbone, I+O VS, Fishbone, I+O Laboratory Tests 08/31/18 06:27 Red Blood Count 3.87 L, Mean Corpuscular Volume 93.3, Mean Corpuscular He moglobin 32.3, Mean Corpuscular Hemoglobin Concent 34.6, Red Cell Distribution Width 12.4, Neutrophils (%) (Auto) 89.7 H, Lymphocytes (%) (Auto) 5.6 L, Monocytes (%) (Auto) 3.9, Eosinophils (%) (Auto) 0.0, Basophils (%) (Auto) 0.1, Neutrophils # (Auto) 10.7 H, Lymphocytes # (Auto) 0.7 L, Monocytes # (Auto) 0.5, Eosinophils # (Auto) 0.0, Basophils # (Auto) 0.0 08/31/18 06:28 Calcium Level 8.6 Vital Signs Date Time Temp Pulse Resp B/P (MAP) Pulse Ox O2 Delivery O2 Flow Rate FiO2 08/31/18 10:20 17 08/31/18 04:00 97.5 74 142/82 (102) 99 08/30/18 17:25 Room Air I&O- Last 24 Hours up to 6 AM 08/31/18 06:00 Intake Total 1720 ml Output Total 10 ml Balance 1710 ml TAYLOR PEREIRA MD Aug 31, 2018 11:07
[2018-08-31 14:00] VITALS: BP 139/78
[2018-08-31 16:30] VITALS: BP 144/84
[2018-08-31] MEDS ORDERED: clonazePAM 0.5 MG TAB PO PRN (16:30)
[2018-08-31] MEDS: NS 1,000 ML IV SCH (16:38)
[2018-08-31] MEDS: MORPHINE 4 MG/ML 1ML VIAL/SYRINGE (J2270) IV PRN ×2 (17:35→22:24)
[2018-08-31 21:48] VITALS: BP 140/78
[2018-09-01] MEDS: VANCOMYCIN HCL 1,000 MG, VIAL MATE ADAPTER 1 EACH in D5W 250 ML IV SCH ×2 (02:23→09:35)
[2018-09-01 04:38] VITALS: BP 132/81
[2018-09-01] MEDS: HEPARIN SOD (PORCINE) 5000 UNITS/ML VIAL SC SCH ×2 (06:38→14:00)
[2018-09-01] MEDS: NS 1,000 ML IV SCH (06:38)
[2018-09-01 06:59] LABS: BASO # 0.1 10^3/uL (0.0-0.2); BASO % 0.7 % (0.0-1.0); EOS # 0.1 10^3/uL (0.0-0.50); EOS % 1.7 % (0.0-3.0); HEMATOCRIT 33.4 % (42.0-52.0); HEMOGLOBIN 11.5 g/dl (13.5-17.5); LYMPH # 1.6 10^3/uL (1.5-4.5); LYMPH % 19.9 % (24.0-44.0); MEAN CORPUSCULAR HEMOGLOBIN 32.1 pg (27.0-33.0); MEAN CORPUSCULAR HGB CONC 34.4 g/dl (32.0-36.5); MEAN CORPUSCULAR VOLUME 93.3 fl (80.0-96.0); MONO # 0.7 10^3/uL (0.0-0.8); NEUTROPHILS # 5.4 10^3/uL (1.8-7.7); NEUTROPHILS % 66.2 % (36.0-66.0); PLATELET COUNT, AUTOMATED 282 10^3/uL (150-450); RED BLOOD COUNT 3.58 10^6/uL (4.30-6.10); WHITE BLOOD COUNT 8.1 10^3/uL (4.0-10.0)
[2018-09-01] MEDS: MORPHINE 4 MG/ML 1ML VIAL/SYRINGE (J2270) IV PRN ×3 (07:00→12:27)
[2018-09-01 07:23] LABS: BLOOD UREA NITROGEN 14 MG/DL (7-18); CALCIUM LEVEL 8.1 MG/DL (8.5-10.1); CARBON DIOXIDE LEVEL 27 MEQ/L (21-32); CHLORIDE LEVEL 106 MEQ/L (98-107); CREATININE FOR GFR 0.78 MG/DL (0.70-1.30); GLOMERULAR FILTRATION RATE > 60.0 (>60); GLUCOSE, FASTING 100 MG/DL (70-100); MAGNESIUM LEVEL 2.3 MG/DL (1.8-2.4); POTASSIUM SERUM 3.6 MEQ/L (3.5-5.1); SODIUM LEVEL 139 MEQ/L (136-145)
[2018-09-01 08:00] VITALS: BP 130/83
[2018-09-01] MEDS: SENOKOT S TAB PO SCH (08:53)
--- NOTE | 2018-09-01 09:23 | IPNPDOC ---
Subjective General Date/Time Seen The patient was seen on 09/01/18 at 09:19. Subject Chief Complaint/History The patient is a 37-year-old male admitted with a reason for visit of Abscess Of Rt Groin. I examined the patient's wound today. He reports being comfortable. He has been afebrile. Current Medications Current Medications Current Medications Acetaminophen (Tylenol Tab) 650 mg Q4HP PRN PO MILD PAIN OR FEVER Last administered on 08/31/18at 14:54; Start 08/29/18 at 16:30 Bisacodyl (Dulcolax Tab) 5 mg DAILYPRN PRN PO CONSTIPATION; Start 08/29/18 at 16:30 Clonazepam (KlonoPIN) 0.5 mg DAILYPRN PRN PO ANXIETY Last administered on 08/31/18at 16:25; Start 08/31/18 at 16:30 Fentanyl Citrate (Sublimaze) 25 mcg Q5MP PRN IV MODERATE PAIN (PS 4-7); Start 08/30/18 at 17:15; Stop 08/30/18 at 18:15; Status DC Heparin Sodium (Porcine) (Heparin) 5,000 units Q8H SC Last administered on 09/01/18at 06:38; Start 08/29/18 at 22:00 Home Med (Med Rec Complete!) ASDIRECTED XX ; Start 08/29/18 at 13:30; Stop 08/29/18 at 13:30; Status DC Ketorolac Tromethamine (ToRADol) 30 mg ONCE PRN IV PAIN; Start 08/30/18 at 17:15; Stop 08/30/18 at 18:15; Status DC Lactated Ringer's 1,000 ml @ 100 mls/hr Q10H IV ; Start 08/30/18 at 17:15; Stop 08/30/18 at 18:15; Status DC Metoclopramide HCl (REGLAN INJection) 10 mg Q6HP PRN IV NAUSEA OR VOMITING; Start 08/30/18 at 17:15; Stop 08/30/18 at 18:15; Status DC Morphine Sulfate (Morphine Sulfate Inj) 2 mg Q2HP PRN IV SEVERE PAIN (PS 8-10) Last administered on 09/01/18at 07:00; Start 08/29/18 at 16:30 Ondansetron HCl (ZOFRAN INJection) 4 mg Q4HP PRN IV NAUSEA OR VOMITING; Start 08/30/18 at 17:15; Stop 08/30/18 at 18:15; Status DC Ondansetron HCl (Zofran) 4 mg Q6HP PRN PO NAUSEA OR VOMITING; Start 08/29/18 at 16:30 Oxycodone/ Acetaminophen (Percocet 5mg/ 325mg Tablet) 1 tab ASDIRECTED PRN PO MILD/MODERATE PAIN (PS 1-7) Last administered on 08/30/18at 17:35; Start 08/30/18 at 17:15; Stop 08/30/18 at 17:48; Status DC Oxycodone/ Acetaminophen (Percocet 5mg/ 325mg Tablet) 1 tab Q4HP PRN PO MODERATE PAIN (PS 5-7) Last administered on 08/31/18at 10:20; Start 08/29/18 at 16:30 Senna/Docusate Sodium (Senokot S) 1 tab BID PO Last administered on 08/31/18at 21:46; Start 08/29/18 at 21:00 Sodium Chloride 1,000 ml @ 70 mls/hr [id number] IV Last administered on 09/01/18at 06:38; Start 08/29/18 at 16:20 Sodium Chloride 1,000 ml @ 70 mls/hr [id number] IV ; Start 08/30/18 at 00:01; Stop 08/30/18 at 00:01; Status DC Vancomycin HCl 1000 mg/IV Miscellaneous Supplies 1 each/ Dextrose 270 ml @ 270 mls/hr Q8H IV Last administered on 09/01/18at 02:23; Start 08/29/18 at 18:00 Allergies Coded Allergies: No Known Drug Allergy (Verified Allergy, Unknown, 10/25/12) Objective Physical Examination Examination GENERAL APPEARANCE: Appears comfortable. SKIN: Right groin area shows resolution of the cellulitis. There is some left over induration and soft tissue thickening on the right groin. The iodoform packing was removed. Minimal oozing at the skin edges but otherwise looks relatively clean. No gross purulent drainage coming off from the wound cavity. The counter incision lateral to the wound has mostly healed up. Vital Signs Vital Signs Date Time Temp Pulse Resp B/P (MAP) Pulse Ox O2 Delivery O2 Flow Rate FiO2 09/01/18 08:00 97.0 68 17 130/83 (99) 97 08/30/18 17:25 Room Air I&Os I&O- Last 24 Hours up to 6 AM 09/01/18 06:00 Intake Total 1790.5 ml Output Total 825 ml Balance 965.5 ml Laboratory Data Labs 24H Laboratory Tests 2 09/01/18 06:40: Immature Granulocyte % (Auto) 2.5, White Blood Count 8.1, Red Blood Count 3.58L, Hemoglobin 11.5L, Hematocrit 33.4L, Mean Corpuscular Volume 93.3, Mean Corpuscular Hemoglobin 32.1, Mean Corpuscular Hemoglobin Concent 34.4, Red Cell Distribution Width 12.8, Platelet Count 282, Neutrophils (%) (Auto) 66.2H, Lymphocytes (%) (Auto) 19.9L, Monocytes (%) (Auto) 9.0H, Eosinophils (%) (Auto) 1.7, Basophils (%) (Auto) 0.7, Neutrophils # (Auto) 5.4, Lymphocytes # (Auto) 1.6, Monocytes # (Auto) 0.7, Eosinophils # (Auto) 0.1, Basophils # (Auto) 0.1, Nucleated Red Blood Cells % (auto) 0.0, Anion Gap 6L, Glomerular Filtration Rate > 60.0, Blood Urea Nitrogen 14#, Creatinine 0.78, Sodium Level 139, Potassium Level 3.6, Chloride Level 106, Carbon Dioxide Level 27, Calcium Level 8.1L, Magnesium Level 2.3, C-Reactive Protein, Quantitative 2.10H CBC/BMP Laboratory Tests 09/01/18 06:40 Red Blood Count 3.58 L, Mean Corpuscular Volume 93.3, Mean Corpuscular Hemoglobin 32.1, Mean Corpuscular Hemoglobin Concent 34.4, Red Cell Distribution Width 12.8, Neutrophils (%) (Auto) 66.2 H, Lymphocytes (%) (Auto) 19.9 L, Monocytes (%) (Auto) 9.0 H, Eosinophils (%) (Auto) 1.7, Basophils (%) (Auto) 0.7, Neutrophils # (Auto) 5.4, Lymphocytes # (Auto) 1.6, Monocytes # (Auto) 0.7, Eosinophils # (Auto) 0.1, Basophils # (Auto) 0.1, Calcium Level 8.1 L Microbiology Microbiology 08/29/18 Blood Culture - Preliminary, Resulted No Growth after 48 hours. All Specime... 08/29/18 Blood Culture - Preliminary, Resulted No Growth after 48 hours. All Specime... 08/30/18 MRSA Screen - Final, Complete 08/30/18 Gram Stain - Final, Complete 08/30/18 Wound Culture - Final, Complete Staphylococcus Aureus 08/30/18 Anaerobic Culture - Final, Complete Impression Right groin abscess with cellulitis and soft tissue induration The wound cavity is deep enough that it would benefit from continued light packing with iodoform gauze. From surgical point. A think he is stable enough to go home. I'll leave it up to the medical service to determine the length of the antibiotic coverage and what to send him home on. Review of cultures shows he has been growing on the MSSA. He should follow-up with me in 2 weeks' time for wound care. Plan / VTE VTE Prophylaxis Ordered?: Yes TAYLOR PEREIRA MD Sep 01, 2018 09:23
[2018-09-01] MEDS ORDERED: OXYC-403 PO (13:28)
[2018-09-01] MEDS ORDERED: BISAC5TA PO (13:28)
[2018-09-01] MEDS ORDERED: OXYC-517 PO (13:37)
--- NOTE | 2018-09-01 13:45 | DS.PDOC ---
Discharge Summary General Date of Admission Aug 29, 2018 at 16:20 Date of Discharge 09/01/18 Discharge Summary PROCEDURES PERFORMED DURING STAY: [None]. ADMITTING DIAGNOSES: 1. right groin abscess and cellutlitis . DISCHARGE DIAGNOSES: 1. [right groin abscess and cellutlitis ]. COMPLICATIONS/CHIEF COMPLAINT: worsening cellulitis of Rt Groin. HISTORY OF PRESENT ILLNESS: This is a 37 yo male with pmhx of left testicular cancer in remission who presented to the ed for right groin worsening cellulitis and possibly abscess. Patient started having erythema and swelling on last and went to the [facility] on Tuesday and was started on clindamycin, however since then the area of erythema has grown 2x and now he has a large painful induration draining yellow exudate. He felt feverish yesterday, started having mild back pain today, but denied nausea, vomiting, chest pain sob, headache, stiff neck, lower extremity weakness, urinary retention or diarrhea HOSPITAL COURSE: Patient was treated with vancomycin and zosyn since admission ( for 4 days ), he had incision and drainage, and packing done for the abscess, and his symptoms are much improved. His vitals are stable and he is stable for discharge today. DISCHARGE MEDICATIONS: Please see below. ALLERGIES: Please see below. PHYSICAL EXAMINATION ON DISCHARGE: PHYSICAL EXAMINATION: GEN: no acute distress HEENT : no lymphadenopathy, PERRLA , no oropharyngeal erythema or exudates CVS: Normal S1/s2, no murmurs, rubs or gallops, RESP: Lungs are clear to auscultation bilaterally, no crackles, wheezes or rhonchi Abd: soft, nontender, nondistended, + BS MSK: full ROM, 5/5 strength in all extremities Integumentary: no rash or bruises , right groin erythema and abscess , much improved , s/p I and D - area is clean and packed Neuro: AOAx3, no focal deficit psych: normal mood, good judgement and cooperative LABORATORY DATA: Please see below. IMAGING: [CT LUMBAR SPINE WITHOUT CONTRAST: HISTORY: Right groin abscess. There is no disc bulge or herniation at the L1-2, L2-3, and L5-S1 levels. There is hypertrophy of the posterior articulating facets at the L5-S1 level. The nerves exit the neural foramina without compression. A diffuse disc bulge is present at the L3-4 level. There is minimal compression of the thecal sac. The L3 nerves exit the neural foramina without compression. A diffuse disc bulge is present at the L4-5 level. There is minimal compression of the thecal sac. The L4 nerves exit the neural foramina without compression. The intervertebral discs and vertebral bodies are normal in height. There is no subluxation. IMPRESSION: Diffuse disc bulges at the L3-4 and L4-5 levels with minimal thecal sac compression. CT PELVIS WITH IV CONTRAST: HISTORY: Evaluate abscess. Rule out osteomyelitis or cord compression. Patient reports a history of testicular carcinoma status post left orchiectomy. Comparison CT study is from January 23, 2015. CT CONTRAST DOSE: 100 mL of intravenous Isovue [address] FINDINGS: There is diffuse subcutaneous fat swelling, mild lymphadenopathy, and skin thickening in the right inguinal soft tissues lateral to the right spermatic cord and inguinal canal. No abscess is seen. The largest right inguinal lymph node measures 10 x 20 mm. No vascular abnormality is seen. No soft tissue gas is appreciated. Normal appendix is seen. No intrapelvic abscess is noted. Calcified gallstones are again noted in the gallbladder, which is partially seen at the top of the imaging field of view. IMPRESSION: Cellulitis inflammatory pattern in the right inguinal soft tissues. No abscess seen. Mild reactive lymphadenopathy. SOFT-TISSUE ULTRASOUND RIGHT GROIN: HISTORY: Red, swollen area of the right groin. Question abscess. Comparison sonography August 27, 2018 showed a 1.2 cm tiny pocket of fluid which may be early abscess. TODAY'S SONOGRAPHIC FINDINGS: On today's sonography, there has been a slight increase in the size of the irregularly-shaped hypoechoic subcutaneous fluid collection. It currently measures 1.5 x 1.2 x 0.8 cm. There is surrounding edema. IMPRESSION: Slight increase in the size of the small hypoechoic subcutaneous fluid collection, 1.5 x 1.2 x 0.8 cm today. This may be a small abscess. ] PROGNOSIS: [good] ACTIVITY: [As tolerated]. DIET: [as tolerated ] DISCHARGE PLAN: [ home with VNS svc ] DISPOSITION: discharge today DISCHARGE INSTRUCTIONS: 1. [f/u with PMD in 1-2 weeks ]. DISCHARGE CONDITION: [Stable]. TIME SPENT ON DISCHARGE: Greater than [30] minutes. Vital Signs/I&Os Vital Signs Date Time Temp Pulse Resp B/P (MAP) Pulse Ox O2 Delivery O2 Flow Rate FiO2 09/01/18 12:37 18 09/01/18 08:00 97.0 68 130/83 (99) 97 08/30/18 17:25 Room Air I&O- Last 24 Hours up to 6 AM 09/01/18 06:00 Intake Total 1790.5 ml Output Total 825 ml Balance 965.5 ml Laboratory Data Labs 24H Laboratory Tests 2 09/01/18 06:40: Immature Granulocyte % (Auto) 2.5, White Blood Count 8.1, Red Blood Count 3.58L, Hemoglobin 11.5L, Hematocrit 33.4L, Mean Corpuscular Volume 93.3, Mean Corpus cular Hemoglobin 32.1, Mean Corpuscular Hemoglobin Concent 34.4, Red Cell Distribution Width 12.8, Platelet Count 282, Neutrophils (%) (Auto) 66.2H, Lymphocytes (%) (Auto) 19.9L, Monocytes (%) (Auto) 9.0H, Eosinophils (%) (Auto) 1.7, Basophils (%) (Auto) 0.7, Neutrophils # (Auto) 5.4, Lymphocytes # (Auto) 1.6, Monocytes # (Auto) 0.7, Eosinophils # (Auto) 0.1, Basophils # (Auto) 0.1, Nucleated Red Blood Cells % (auto) 0.0, Anion Gap 6L, Glomerular Filtration Rate > 60.0, Blood Urea Nitrogen 14#, Creatinine 0.78, Sodium Level 139, Potassium Level 3.6, Chloride Level 106, Carbon Dioxide Level 27, Calcium Level 8.1L, Magnesium Level 2.3, C-Reactive Protein, Quantitative 2.10H CBC/BMP Laboratory Tests 09/01/18 06:40 Red Blood Count 3.58 L, Mean Corpuscular Volume 93.3, Mean Corpuscular Hemoglobin 32.1, Mean Corpuscular Hemoglobin Concent 34.4, Red Cell Distribution Width 12.8, Neutrophils (%) (Auto) 66.2 H, Lymphocytes (%) (Auto) 19.9 L, Monocytes (%) (Auto) 9.0 H, Eosinophils (%) (Auto) 1.7, Basophils (%) (Auto) 0.7, Neutrophils # (Auto) 5.4, Lymphocytes # (Auto) 1.6, Monocytes # (Auto) 0.7, Eosinophils # (Auto) 0.1, Basophils # (Auto) 0.1, Calcium Level 8.1 L Microbiology Microbiology 08/29/18 Blood Culture - Preliminary, Resulted No Growth after 72 hours. All specime... 08/29/18 Blood Culture - Preliminary, Resulted No Growth after 72 hours. All specime... 08/30/18 MRSA Screen - Final, Complete 08/30/18 Gram Stain - Final, Complete 08/30/18 Wound Culture - Final, Complete Staphylococcus Aureus 08/30/18 Anaerobic Culture - Final, Complete Discharge Medications Scheduled Atorvastatin Calcium (Atorvastatin Calcium) 20 Mg Tab, 20 MG PO QPM, (Reported) TAKES AT DINNERTIME, MISSED DOSE, TOOK THIS AM 08/29 Clindamycin Hcl (Cleocin) 300 Mg Cap, 300 MG PO QID, (Reported) STARTED 08/26 FOR 10 DAYS Scheduled PRN Bisacodyl (Bisacodyl EC) 5 Mg Tab, 5 MG PO DAILYPRN PRN for CONSTIPATION Clonazepam (Clonazepam) 0.5 Mg Tab, 0.5 MG PO DAILY PRN for ANXIETY, (Reported) Ibuprofen (Ibuprofen) 600 Mg Tab, 600 MG PO Q6H PRN for PAIN, (Reported) with food Allergies Coded Allergies: No Known Drug Allergy (Verified Allergy, Unknown, 10/25/12) DYLAN HORNE MD Sep 01, 2018 13:45
[2018-09-01] MEDS ORDERED: AUGM875T28 PO (13:46)
[2018-09-01 14:00] VITALS: BP 146/78
--- NOTE | 2018-09-01 20:50 | IPN ---
DATE: 08/31/2018 This is a 37-year-old male with a past medical history of left testicular cancer, status post surgery, came to the emergency room (ER) with pain and swelling in his right groin. He had initially thought he had a pimple, he popped the area and subsequently Tuesday on it has gotten worse with warmth, redness, and swelling. He had been given clindamycin in the ER on Tuesday, discharged home, but returned 08/29/2018 for worsening symptoms. The patient was then admitted, placed on intravenous (IV) antibiotics. Surgical consult was obtained. Dr. Levin saw him. He had an incision and drainage (I and D) today of the area by Dr. Levin, done without complication. He has just a small amount of serous on his dressing. His vital signs have remained stable. He is feeling much better. OBJECTIVE: VITAL SIGNS: Blood pressure 139/78, pulse 85, respirations 18, temperature 98.4, oxygen saturation 97% on room air. The patient is alert and oriented times three. Pharynx: Tongue and gums pink and moist. Tongue is midline. Neck is supple without lymphadenopathy. No thyromegaly. No goiter. Chest is clear to auscultation without wheeze or retractions. Heart is regular. Abdomen is soft, nontender. No masses, pulsations, or bruits. No organomegaly. Bowel sounds are positive. Genitalia/Rectal: Not done. Right groin incision with a dressing in place. Peripheral pulses equal and palpable bilaterally. Skin is warm and dry. IMPRESSION: Groin abscess status post incision and drainage, doing well. Continue antibiotics. Followup on cultures done in the operating room (OR). Continue vancomycin. .
== END 2018-09-01 15:17 | disposition home or self-care (01) | DRG 364 ==
LOC: M ED 09:31 → M ED INP 16:20 → M MS4PR 18:11
PROVIDERS: ADMIT Internal Medicine; ATTEND Internal Medicine
PROC: 0Y950ZZ Drainage of Right Inguinal Region, Open Approach (ICD-10-PCS; principal; 2018-08-30 12:45)
DX: L03.314 Cellulitis of groin (principal); F17.200 Nicotine dependence, unspecified, uncomplicated; M51.26 Other intervertebral disc displacement, lumbar region; Z85.47 Personal history of malignant neoplasm of testis; Z90.79 Acquired absence of other genital organ(s); Z79.899 Other long term (current) drug therapy; L02.214 Cutaneous abscess of groin

== ENCOUNTER → 2018-09-11 | Outpatient (REF) | payer OTHER ==
[~2018-09-11] MED LIST changes: +AUGM875T28 PO; +BISAC5TA PO; +CLON0.5T8 PO; +IBUP1TAB6 PO; +OXYC-403 PO; +OXYC-517 PO
[2018-09-11 13:02] LABS: HEMOGLOBIN A1c 5.7 %
[2018-09-11 13:09] LABS: ALBUMIN 3.8 GM/DL (3.2-5.2); ALT/SGPT 43 U/L (12-78); BILIRUBIN,TOTAL 0.3 MG/DL (0.2-1.0); BLOOD UREA NITROGEN 13 MG/DL (7-18); CALCIUM LEVEL 8.7 MG/DL (8.5-10.1); CARBON DIOXIDE LEVEL 27 MEQ/L (21-32); CHLORIDE LEVEL 105 MEQ/L (98-107); CHOLESTEROL LEVEL 179 MG/DL (<200); CHOLESTEROL RISK RATIO 6.629 (<5); CREATININE FOR GFR 0.72 MG/DL (0.70-1.30); GLOMERULAR FILTRATION RATE > 60.0 (>60); GLUCOSE, FASTING 104 MG/DL (70-100); HDL CHOLESTEROL 27 MG/DL (>40); LDL CHOLESTEROL 75 MG/DL (<100); NON-HDL-C 152 MG/DL; POTASSIUM SERUM 4.3 MEQ/L (3.5-5.1); SODIUM LEVEL 138 MEQ/L (136-145); TOTAL PROTEIN 7.3 GM/DL (6.4-8.2); TRIGLYCERIDES LEVEL 383 MG/DL (<150)
== END ==
LOC: M LAB REF 12:16
PROVIDERS: ATTEND Nurse Practitioner Adult Health
DX: E78.5 Hyperlipidemia, unspecified (principal); R73.09 Other abnormal glucose

== ENCOUNTER → 2019-06-13 | Outpatient (REF) | payer OTHER, MEDICAID ==
[2019-06-13 17:52] LABS: APPEARANCE, URINE CLEAR (CLEAR); BACTERIA, URINE AUTO NEGATIVE (NEGATIVE); BILIRUBIN, URINE AUTO NEGATIVE (NEGATIVE); BLOOD, URINE BLOOD NEGATIVE (NEGATIVE); COLOR, URINE YELLOW (YELLOW); GLUCOSE, URINE (UA) AUTO NEGATIVE (NEGATIVE); KETONE, URINE AUTO NEGATIVE (NEGATIVE); LEUKOCYTE ESTERASE, URINE AUTO NEGATIVE (NEGATIVE); NITRITE, URINE AUTO NEGATIVE (NEGATIVE); PROTEIN, URINE AUTO NEGATIVE (NEGATIVE); RBC, URINE AUTO 0 /HPF (0-3); SPECIFIC GRAVITY URINE AUTO 1.014 (1.002-1.035); SQUAMOUS EPITHELIAL CELL UR AU 0 /HPF (0-6); UROBILINOGEN, URINE AUTO 0.2 mg/dL (0.0-2.0); WBC, URINE AUTO 0 /HPF (0-3)
[2019-06-13 18:36] LABS: BASO # 0.1 10^3/uL (0.0-0.2); BASO % 1.1 % (0.0-1.0); EOS # 0.1 10^3/uL (0.0-0.5); EOS % 2.5 % (0.0-3.0); HEMOGLOBIN 14.3 g/dl (13.5-17.5); LYMPH # 1.2 10^3/uL (1.5-5.0); LYMPH % 22.2 % (24.0-44.0); MEAN CORPUSCULAR HEMOGLOBIN 32.6 pg (27.0-33.0); MEAN CORPUSCULAR VOLUME 95.9 fl (80.0-96.0); MONO # 0.6 10^3/uL (0.0-0.8); MONO % 10.5 % (0.0-5.0); NEUTROPHILS # 3.5 10^3/uL (1.5-8.5); NEUTROPHILS % 63.2 % (36.0-66.0); PLATELET COUNT, AUTOMATED 247 10^3/uL (150-450); RED BLOOD COUNT 4.38 10^6/uL (4.30-6.10); WHITE BLOOD COUNT 5.6 10^3/uL (4.0-10.0)
[2019-06-13 19:02] LABS: ALBUMIN 4.1 GM/DL (3.2-5.2); ALT/SGPT 59 U/L (12-78); BILIRUBIN,TOTAL 0.6 MG/DL (0.2-1.0); BLOOD UREA NITROGEN 12 MG/DL (7-18); CARBON DIOXIDE LEVEL 29 MEQ/L (21-32); CHLORIDE LEVEL 103 MEQ/L (98-107); CHOLESTEROL LEVEL 183 MG/DL (<200); CREATININE FOR GFR 0.73 MG/DL (0.70-1.30); FOLATE 16.2 NG/ML; FREE T4 0.82 NG/DL (0.76-1.46); GLOMERULAR FILTRATION RATE > 60.0 (>60); GLUCOSE, FASTING 82 MG/DL (70-100); HDL CHOLESTEROL 30 MG/DL (>40); LDL CHOLESTEROL 95 MG/DL (<100); NON-HDL-C 153 MG/DL; POTASSIUM SERUM 4.1 MEQ/L (3.5-5.1); SODIUM LEVEL 141 MEQ/L (136-145); TOTAL 25(OH) VITAMIN D 19.2 NG/ML (30.0-100.0); TOTAL PROTEIN 7.5 GM/DL (6.4-8.2); TRIGLYCERIDES LEVEL 289 MG/DL (<150); VITAMIN B12 LEVEL 396 PG/ML
[2019-06-13 21:02] LABS: HEMOGLOBIN A1c 5.6 %
== END ==
LOC: M LAB REF 16:42
PROVIDERS: ATTEND Nurse Practitioner Family
DX: Z13.9 Encounter for screening, unspecified (principal)

== ENCOUNTER → 2019-10-26 | Outpatient (REF) | payer OTHER, MEDICAID ==
[~2019-10-26] MED LIST changes: +CLON0.5T2; +CLON0.5T2 PO; -CLON0.5T8; -CLON0.5T8 PO
[2019-10-26 17:56] LABS: CHOLESTEROL RISK RATIO 6.517 (<5)
== END ==
LOC: M LAB REF 16:33
PROVIDERS: ATTEND Nurse Practitioner Family
DX: E78.5 Hyperlipidemia, unspecified (principal)

== ENCOUNTER → 2020-01-05 | Outpatient (CLI) | payer OTHER | LOC: M LABSMTC 10:45 | PROVIDERS: ATTEND Orthopaedic Surgery Hand Surgery | DX: Z03.818 Encounter for observation for suspected exposure to other biological agents ruled out (principal) ==

== ENCOUNTER → 2020-10-29 | Outpatient (REF) | payer OTHER ==
[2020-10-29 13:37] LABS: BASO # 0.1 10^3/uL (0.0-0.2); EOS # 0.2 10^3/uL (0.0-0.5); EOS % 3.8 % (0.0-3.0); HEMATOCRIT 41.2 % (42.0-52.0); HEMOGLOBIN 13.7 g/dl (13.5-17.5); LYMPH # 1.1 10^3/uL (1.5-5.0); LYMPH % 17.7 % (24.0-44.0); MEAN CORPUSCULAR HEMOGLOBIN 31.4 pg (27.0-33.0); MEAN CORPUSCULAR HGB CONC 33.3 g/dl (32.0-36.5); MEAN CORPUSCULAR VOLUME 94.5 fl (80.0-96.0); MONO # 0.5 10^3/uL (0.0-0.8); MONO % 8.6 % (2.0-8.0); NEUTROPHILS # 4.3 10^3/uL (1.5-8.5); NEUTROPHILS % 67.9 % (36.0-66.0); PLATELET COUNT, AUTOMATED 224 10^3/uL (150-450); RED BLOOD COUNT 4.36 10^6/uL (4.30-6.10); WHITE BLOOD COUNT 6.3 10^3/uL (4.0-10.0)
[2020-10-29 14:21] LABS: ALBUMIN 4.2 GM/DL (3.2-5.2); ALT/SGPT 78 U/L (12-78); BILIRUBIN,TOTAL 0.4 MG/DL (0.2-1.0); BLOOD UREA NITROGEN 18 MG/DL (7-18); CARBON DIOXIDE LEVEL 31 MEQ/L (21-32); CHLORIDE LEVEL 105 MEQ/L (98-107); CHOLESTEROL LEVEL 177 MG/DL (<200); CHOLESTEROL RISK RATIO 7.375 (<5); CREATININE FOR GFR 0.75 MG/DL (0.70-1.30); FREE T4 0.83 NG/DL (0.76-1.46); GLOMERULAR FILTRATION RATE > 60.0 (>60); GLUCOSE, FASTING 195 MG/DL (70-100); HDL CHOLESTEROL 24 MG/DL (>40); LDL CHOLESTEROL 91 MG/DL (<100); NON-HDL-C 153 MG/DL; POTASSIUM SERUM 4.1 MEQ/L (3.5-5.1); SODIUM LEVEL 139 MEQ/L (136-145); THYROID STIMULATING HORMONE 0.767 uIU/ML (0.358-3.740); TOTAL 25(OH) VITAMIN D 20.9 NG/ML (30.0-100.0); TOTAL PROTEIN 7.2 GM/DL (6.4-8.2); TRIGLYCERIDES LEVEL 308 MG/DL (<150)
[2020-10-29 14:31] LABS: HEMOGLOBIN A1c 6.9 %
[2020-10-30 23:08] LABS: PSA TOTAL 0.3 ng/mL (0.0-4.0)
== END ==
LOC: M LAB REF 11:28
PROVIDERS: ATTEND Nurse Practitioner Family
DX: F41.9 Anxiety disorder, unspecified (principal); E66.9 Obesity, unspecified

== ENCOUNTER 2023-08-31 09:58 | Day surgery (SDC) | payer OTHER ==
[~2023-08-31] VITALS: Ht 177.8 cm; Wt 103.9 kg
[~2023-08-31 09:58] MED LIST changes: +MIDAZOLAM INJ 2MG/2ML VIAL As Ordered ONE; +OMEG10002 PO; -OXYC-403 PO; +OXYC-673 PO; +PHENYLEPHRINE 10% OPHTH SOL 5ML OD PRN; +fentaNYL 100 MCG/2 ML INJECTION As Ordered ONE
[2023-08-31] MEDS: OFLOXACIN 0.3 % (OCUFLOX) OPTH SOL 5ML OD ONE (10:37)
[2023-08-31] MEDS: LIDOCAINE 3.5 % 1ML OPHTH TOPICAL GEL OU ONE (10:38)
[2023-08-31] MEDS: CYCLOPENTOLATE 1% OPHTH SOLN 2ML BTL OD SCH (10:39)
[2023-08-31] MEDS: TROPICAMIDE 1% OPHTH SOLN 15ML OD SCH (10:39)
[2023-08-31] MEDS: PHENYLEPHRINE 2.5% OPHTH SOL 2ML OD SCH (10:39)
[2023-08-31] MEDS: BSS IRRIG/VANCO(10MG)/TOBRA(5MG)/EPINEPH(1:1000-0.5CC)500ML BAG-ORONLY As Ordered ONE (11:12)
[2023-08-31] MEDS: CEFUROXIME 1MG/0.1ML INTRACAMERAL INJ As Ordered ONE (11:12)
[2023-08-31] MEDS: LIDOCAINE 1% SDV 5ML VIAL As Ordered ONE (11:12)
[2023-08-31 11:25] VITALS: BP 130/84; TEMP 97.5; O2SAT 96
== END 2023-08-31 11:47 | disposition home or self-care (01) ==
LOC: M SDC 09:58
PROVIDERS: ATTEND Ophthalmology
DX: H25.11 Age-related nuclear cataract, right eye (principal); Z79.899 Other long term (current) drug therapy
CPT/HCPCS: 66984; J0697; J2250; J3010; V2632

== ENCOUNTER 2023-09-07 09:25 | Day surgery (SDC) | payer OTHER ==
[~2023-09-07] VITALS: Ht 177.8 cm; Wt 102.1 kg
[~2023-09-07 09:25] MED LIST changes: -MIDAZOLAM INJ 2MG/2ML VIAL As Ordered ONE; -PHENYLEPHRINE 10% OPHTH SOL 5ML OD PRN; +PHENYLEPHRINE 10% OPHTH SOL 5ML OS PRN; -fentaNYL 100 MCG/2 ML INJECTION As Ordered ONE
[2023-09-07] MEDS: CYCLOPENTOLATE 1% OPHTH SOLN 2ML BTL OS SCH (10:19)
[2023-09-07] MEDS: TROPICAMIDE 1% OPHTH SOLN 15ML OS SCH (10:19)
[2023-09-07] MEDS: OFLOXACIN 0.3 % (OCUFLOX) OPTH SOL 5ML OS ONE (10:19)
[2023-09-07] MEDS: LIDOCAINE 3.5 % 1ML OPHTH TOPICAL GEL OU ONE (10:19)
[2023-09-07] MEDS: PHENYLEPHRINE 2.5% OPHTH SOL 2ML OS SCH (10:33)
[2023-09-07] MEDS ORDERED: MIDAZOLAM 5MG/ML 1ML VIAL As Ordered ONE (11:00)
[2023-09-07] MEDS ORDERED: POVIDONE-IODINE 5% OPHTH PREP SOL 30ML As Ordered ONE (11:09)
[2023-09-07] MEDS: LIDOCAINE 1% SDV 5ML VIAL As Ordered ONE (11:27)
[2023-09-07] MEDS: CEFUROXIME 1MG/0.1ML INTRACAMERAL INJ As Ordered ONE (11:27)
[2023-09-07] MEDS: BSS IRRIG/VANCO(10MG)/TOBRA(5MG)/EPINEPH(1:1000-0.5CC)500ML BAG-ORONLY As Ordered ONE (11:27)
[2023-09-07 11:36] VITALS: BP 118/77; TEMP 98; O2SAT 97
== END 2023-09-07 12:09 | disposition home or self-care (01) ==
LOC: M SDC 09:25
PROVIDERS: ATTEND Ophthalmology
DX: H25.12 Age-related nuclear cataract, left eye (principal); Z79.899 Other long term (current) drug therapy
CPT/HCPCS: 66984; J0697; J2250; V2632

== ENCOUNTER → 2023-10-21 | Outpatient (REF) | payer OTHER ==
[~2023-10-21] MED LIST changes: -PHENYLEPHRINE 10% OPHTH SOL 5ML OS PRN
[2023-10-21 12:53] LABS: BASO % 0.8 % (0.0-1.0); EOS # 0.1 10^3/uL (0.0-0.5); EOS % 2.5 % (0.0-3.0); HEMATOCRIT 40.6 % (42.0-52.0); HEMOGLOBIN 13.5 g/dl (13.5-17.5); LYMPH # 1.1 10^3/uL (1.5-5.0); LYMPH % 20.1 % (24.0-44.0); MEAN CORPUSCULAR HEMOGLOBIN 32.1 pg (27.0-33.0); MEAN CORPUSCULAR HGB CONC 33.3 g/dl (32.0-36.5); MEAN CORPUSCULAR VOLUME 96.4 fl (80.0-96.0); MONO # 0.4 10^3/uL (0.0-0.8); MONO % 7.5 % (2.0-8.0); NEUTROPHILS # 3.6 10^3/uL (1.5-8.5); NEUTROPHILS % 68.5 % (36.0-66.0); PLATELET COUNT, AUTOMATED 241 10^3/uL (150-450); RED BLOOD COUNT 4.21 10^6/uL (4.30-6.10); WHITE BLOOD COUNT 5.2 10^3/uL (4.0-10.0)
[2023-10-21 13:21] LABS: HEMOGLOBIN A1c 7.4 % (4.0-6.0)
[2023-10-21 13:30] LABS: ALBUMIN 4.1 G/DL (3.2-5.2); ALKALINE PHOSPHATASE 82 U/L (46-116); ALT/SGPT 60 U/L (7.0-40); AST/SGOT 37 U/L (<34); BLOOD UREA NITROGEN 8 MG/DL (9-23); CALCIUM LEVEL 9.5 MG/DL (8.5-10.1); CARBON DIOXIDE LEVEL 32 MMOL/L (20-31); CHLORIDE LEVEL 101 MMOL/L (98-107); CREATININE FOR GFR 0.72 MG/DL (0.70-1.30); GLOMERULAR FILTRATION RATE > 60.0 (>60); GLUCOSE, FASTING 174 MG/DL (60-100); MAGNESIUM LEVEL 2.1 MG/DL (1.8-2.4); POTASSIUM SERUM 4.6 MMOL/L (3.5-5.1); SODIUM LEVEL 137 MMOL/L (136-145); THYROID STIMULATING HORMONE 1.852 uIU/ML (0.55-4.78); TOTAL 25(OH) VITAMIN D 16.3 NG/ML (20.0-100.0); TOTAL PROTEIN 7.1 G/DL (5.7-8.2)
== END ==
LOC: M LAB REF 11:51
PROVIDERS: ATTEND Nurse Practitioner Family
DX: E66.3 Overweight (principal); E55.9 Vitamin D deficiency, unspecified

== ENCOUNTER → 2024-02-03 | Outpatient (REF) | payer OTHER ==
[2024-02-03 17:17] LABS: ALKALINE PHOSPHATASE 83 U/L (46-116); ALT/SGPT 54 U/L (7.0-40); AST/SGOT 21 U/L (<34); BILIRUBIN,TOTAL 0.6 MG/DL (0.3-1.2); BLOOD UREA NITROGEN 10 MG/DL (9-23); CALCIUM LEVEL 9.1 MG/DL (8.5-10.1); CARBON DIOXIDE LEVEL 28 MMOL/L (20-31); CHLORIDE LEVEL 103 MMOL/L (98-107); CHOLESTEROL LEVEL 149 MG/DL (<200); CHOLESTEROL RISK RATIO 5.58 (<5); CREATININE FOR GFR 0.71 MG/DL (0.70-1.30); GLOMERULAR FILTRATION RATE > 60.0 (>60); GLUCOSE, FASTING 162 MG/DL (60-100); HDL CHOLESTEROL 26.7 MG/DL (>40); LDL CHOLESTEROL 82.7 MG/DL (<100); NON-HDL-C 122.3 MG/DL; POTASSIUM SERUM 4.1 MMOL/L (3.5-5.1); SODIUM LEVEL 139 MMOL/L (136-145); TOTAL PROTEIN 6.7 G/DL (5.7-8.2); TRIGLYCERIDES LEVEL 198 MG/DL (<150)
[2024-02-03 18:34] LABS: HEMOGLOBIN A1c 6.4 % (4.0-6.0)
== END ==
LOC: M LAB REF 16:19
PROVIDERS: ATTEND Nurse Practitioner Family
DX: E66.3 Overweight (principal)

== ENCOUNTER → 2025-03-14 | Outpatient (REF) | payer OTHER ==
[2025-03-14 13:57] LABS: ALT/SGPT 40 U/L (7.0-40); AST/SGOT 29 U/L (<34); CALCIUM LEVEL 9.9 MG/DL (8.5-10.1); CARBON DIOXIDE LEVEL 30 MMOL/L (20-31); CHLORIDE LEVEL 98 MMOL/L (98-107); CHOLESTEROL LEVEL 319 MG/DL (<200); CHOLESTEROL RISK RATIO 7.16 (<5); CREATININE FOR GFR 0.88 MG/DL (0.70-1.30); GLOMERULAR FILTRATION RATE > 90.0 (>60); LDL CHOLESTEROL 241.5 MG/DL (<100); NON-HDL-C 274.5 MG/DL; POTASSIUM SERUM 4.7 MMOL/L (3.5-5.1); SODIUM LEVEL 141 MMOL/L (136-145); TOTAL 25(OH) VITAMIN D 32.4 NG/ML (20.0-100.0); TRIGLYCERIDES LEVEL 165 MG/DL (<150)
[2025-03-14 17:03] LABS: ESTIMATED AVERAGE GLUCOSE 114.0 MG/DL (60-110)
== END ==
LOC: M LAB REF 12:17
PROVIDERS: ATTEND Physician Assistant
DX: E78.5 Hyperlipidemia, unspecified (principal); R73.03 Prediabetes; E55.9 Vitamin D deficiency, unspecified

== ENCOUNTER → 2025-07-02 | Outpatient (REF) | payer OTHER ==
[~2025-07-02] MED LIST changes: -IBUP-1022 PO; -IBUP1TAB6 PO; +IBUP600T42 PO; +SFHIBU600 PO
[2025-07-02 14:08] LABS: CHOLESTEROL LEVEL 181.0 MG/DL (<200); CHOLESTEROL RISK RATIO 4.26 (<5); LDL CHOLESTEROL 118.2 MG/DL (<100); NON-HDL-C 138.6 MG/DL; TRIGLYCERIDES LEVEL 102.0 MG/DL (<150)
== END ==
LOC: M LAB REF 12:56
PROVIDERS: ATTEND Physician Assistant
DX: E78.5 Hyperlipidemia, unspecified (principal)